=== PATIENT | female | born 1955 | race Caucasian/White ===

== ENCOUNTER 2017-11-11 01:41 | Inpatient (IN) | payer BC ==
[~2017-11-11] VITALS: Ht 149.9 cm; Wt 105.1 kg
[2017-11-11 02:24] LABS: HEMATOCRIT 44.7 % (36-48); MEAN CORPUSCULAR HEMOGLOBIN 34.4 pg (27.0-33.0); MEAN CORPUSCULAR HGB CONC 34.5 g/dL (32.0-36.0); MEAN CORPUSCULAR VOLUME 99.9 fL (79-99); NUCLEATED RED BLOOD CELLS 0.2 % (0.0-0.19); PLATELET COUNT (AUTO) 219 K/uL (130-400); RED BLOOD CELL COUNT(AUTO) 4.47 MIL/uL (4.00-5.50); RED CELL DISTRIBUTION WIDTH 14.5 % (11.0-15.5); WHITE BLOOD COUNT (AUTO) 8.9 K/uL (4.8-10.8)
[2017-11-11 02:33] LABS: CARBON DIOXIDE 27 mmol/L (21-32); CHLORIDE 106 mmol/L (101-111); CREATININE 1.4 mg/dL (0.5-1.5); GLOMERULAR FILTR. RATE CALC 40 mL/min (>60); GLUCOSE,RANDOM 86 mg/dL (70-105); SODIUM SERUM 140 mmol/L (136-145); UREA NITROGEN, BLOOD 29 mg/dL (7-18)
[2017-11-11 02:37] LABS: INR 1.12 (0.85-1.15); PARTIAL THROMBOPLASTIN TIME 28.7 SEC (26.3-35.5); PROTHROMBIN TIME 11.7 SEC (9.6-11.6)
[2017-11-11 02:43] LABS: APPEARANCE,URINE Clear (CLEAR); BILIRUBIN,URINE Negative (NEGATIVE); COLOR,URINE Dark Yellow (YELLOW); GLUCOSE, URINE (UA) Negative (NEGATIVE); KETONES,URINE Negative (NEGATIVE); LEUKOCYTE ESTERASE ,URINE Small (NEGATIVE); NITRATE,URINE Negative (NEGATIVE); OCCULT BLOOD,URINE Negative (NEGATIVE); PH,URINE 5.5 (5.0-8.0); PROTEIN,URINE Negative (NEGATIVE)
[2017-11-11 02:48] LABS: ALANINE AMINOTRANSFERASE 32 U/L (12-78); ALBUMIN 2.4 g/dL (3.5-5.0); ASPARTATE AMINOTRANSFERASE 62 U/L (10-37); BILIRUBIN,TOTAL 1.6 mg/dL (0.2-1.0); CREATINE KINASE MB < 0.5 ng/mL (0.5-3.6); CREATINE KINASE, TOTAL 54 U/L (21-232); MYOGLOBIN 48 ng/mL (10-92); TOTAL PROTEIN, SERUM 7.7 g/dL (6.0-8.3); TROPONIN I < 0.04 ng/mL (0.00-0.06)
[2017-11-11 03:05] LABS: B-TYPE NATRIURETIC PEPTIDE 220 pg/mL (0-100)
[2017-11-11] MEDS ORDERED: CEFTRIAXONE SODIUM 2 GM VIAL ONE (03:09)
[2017-11-11] MEDS ORDERED: LACTULOSE 20 GM/30 ML UDCUP ONE ×2 (03:10→09:28)
[2017-11-11] MEDS ORDERED: MAGNESIUM 2GM PREMIX 50ML 50 ML IV ONE (03:11)
[2017-11-11 03:31] LABS: BACTERIA,URINE Rare /HPF (None Seen); RBC,URINE None Seen /HPF (0-1); TRANSITIONAL EPI CELLS,URINE Few /LPF (None Seen)
[2017-11-11 03:39] LABS: BASOPHILS % (MANUAL) 1 % (0-2); EOSINOPHILS % (MANUAL) 6 % (1-6); LYMPHOCYTES % (MANUAL) 57 % (22-44); MONOCYTES % (MANUAL) 18 % (2-9); SEGMENTED NEUTROPHILS % 18 % (40-70)
[2017-11-11 03:41] LABS: MAN.DIFF COMMENT-IMPRESSION MANUAL DIFFERENTIAL
[2017-11-11] MEDS ORDERED: SODIUM CHLORIDE 0.9% 1000ML 1,000 ML IV ONE (05:25)
[2017-11-11] MEDS ORDERED: NITROGLYCERIN 0.4 MG SL TAB SL PRN (05:45)
[2017-11-11] MEDS ORDERED: MAG HYDROX/AL HYDROX/SIMETH ES 30 ML SUSP UDCUP PO PRN (05:45)
[2017-11-11] MEDS ORDERED: DiphenhydrAMINE HCL 50 MG/ML VIAL IVP PRN (05:45)
[2017-11-11] MEDS ORDERED: GUAIFENESIN-DM 200/20 MG 10 ML PO PRN (05:45)
[2017-11-11] MEDS ORDERED: ONDANSETRON HCL 4 MG/2 ML VIAL IVP PRN (05:45)
[2017-11-11] MEDS ORDERED: ZOLPIDEM TARTRATE 5 MG TAB PO PRN (05:45)
[2017-11-11] MEDS ORDERED: POTASSIUM CHLORIDE 20 MEQ ERTAB PO PRN (05:45)
[2017-11-11] MEDS ORDERED: LACTULOSE 20 GM/30 ML UDCUP PO PRN (05:45)
[2017-11-11] MEDS ORDERED: POTASSIUM CHLORIDE 20MEQ/100ML 100 ML IV PRN (05:45)
[2017-11-11] MEDS ORDERED: POTASSIUM CHLORIDE 10% ELIXIR 20 MEQ/15 ML UDCUP PO PRN (05:45)
[2017-11-11] MEDS ORDERED: DIPHENHYDRAMINE HCL 25 MG CAPSULE PO PRN (05:45)
[2017-11-11] MEDS ORDERED: CLONIDINE HCL 0.1 MG TABLET PO PRN (05:45)
[2017-11-11] MEDS ORDERED: GUAIFENESIN SUGAR-FREE 100 MG/5 ML UDCUP PO PRN (05:45)
[2017-11-11] MEDS: SODIUM CHLORIDE 0.9% 1000ML 1,000 ML IV SCH ×2 (05:45→21:11)
[2017-11-11] MEDS ORDERED: ACETAMINOPHEN 325 MG TAB PO PRN ×2 (05:45)
[2017-11-11] MEDS ORDERED: LIDOCAINE HCL-MPF 1% 2ML VIAL IJ PRN (05:45)
[2017-11-11] MEDS ORDERED: LACTULOSE 20 GM/30 ML UDCUP PO SCH (09:00)
[2017-11-11 12:51] VITALS: BP 123/78
[2017-11-11] MEDS ORDERED: ESZO3TAB38 PO (13:03)
[2017-11-11] MEDS ORDERED: CIPR-245 PO (13:03)
[2017-11-11] MEDS ORDERED: LOSA25TA21 PO (13:03)
[2017-11-11] MEDS ORDERED: LACT10SO9 PO (13:03)
[2017-11-11] MEDS ORDERED: SPIR100T PO (13:03)
[2017-11-11] MEDS ORDERED: FURO40TA5 PO (13:03)
[2017-11-11] MEDS ORDERED: PROP10TA10 PO (13:03)
[2017-11-11 16:00] VITALS: BP 111/68
[2017-11-11 19:00] VITALS: BP 126/74
[2017-11-11 23:00] VITALS: BP 115/64
[2017-11-12 03:00] VITALS: BP 119/66
== END 2017-11-12 08:15 | disposition home or self-care (01) | DRG 442 ==
LOC: EDH 01:41 → OBSVTOIN 04:45 → EDHIP 04:45 → 2CH 11:29 → 3BH 12:08
PROVIDERS: ADMIT Internal Medicine; ATTEND Internal Medicine
DX: K72.90 Hepatic failure, unspecified without coma (principal); Z68.42 Body mass index [BMI] 45.0-49.9, adult; T68.XXXA Hypothermia, initial encounter; I11.0 Hypertensive heart disease with heart failure; I50.9 Heart failure, unspecified; E83.42 Hypomagnesemia; K74.60 Unspecified cirrhosis of liver; E66.9 Obesity, unspecified; G47.00 Insomnia, unspecified; Z28.21 Immunization not carried out because of patient refusal
CPT/HCPCS: 36415; 71045; 80053; 81001; 82140; 82550; 82553; 82948; 83605; 83735; 83874; 83880; 84484; 85025; 85610; 85730; 87040; 87088; 87186; 87804; 93005; J0696; J3475; J7030

== ENCOUNTER → 2018-01-15 | Outpatient (CLI) | payer BC ==
[~2018-01-15] MED LIST: CIPR-245 PO; ESZO3TAB38 PO; FURO40TA5 PO; KETO10TA2 PO; LACT10SO9 PO; LOSA25TA21 PO; PROP10TA10 PO; SPIR100T PO; TAMS-1 PO; TRAM50TA4 PO
== END | disposition home or self-care (01) ==
LOC: RAH 13:16
PROVIDERS: ATTEND Internal Medicine
DX: K43.9 Ventral hernia without obstruction or gangrene (principal); N39.0 Urinary tract infection, site not specified; N20.0 Calculus of kidney; K57.30 Diverticulosis of large intestine without perforation or abscess without bleeding
CPT/HCPCS: 74176

== ENCOUNTER 2018-01-16 12:58 | Inpatient (IN) | payer BC ==
[~2018-01-16] VITALS: Ht 149.9 cm; Wt 121.3 kg
[~2018-01-16 12:58] MED LIST changes: -KETO10TA2 PO; -TAMS-1 PO; -TRAM50TA4 PO
[2018-01-16] MEDS ORDERED: SODIUM CHLORIDE 0.9% 500ML 500 ML IV ONE (13:11)
[2018-01-16] MEDS ORDERED: ASPIRIN 325 MG TABLET ONE (13:16)
[2018-01-16 13:26] LABS: BASOPHILS % (AUTO) 0.6 % (0.0-5.0); EOSINOPHILS % (AUTO) 1.8 % (0.0-8.0); HEMATOCRIT 41.3 % (36-48); LYMPHOCYTES % (AUTO) 37.7 % (21.0-51.0); MEAN CORPUSCULAR HEMOGLOBIN 36.9 pg (27.0-33.0); MEAN CORPUSCULAR HGB CONC 35.7 g/dL (32.0-36.0); MEAN CORPUSCULAR VOLUME 103.4 fL (79-99); NEUTROPHILS % (AUTO) 43.9 % (40.0-77.0); NUCLEATED RED BLOOD CELLS 0.1 % (0.0-0.19); PLATELET COUNT (AUTO) 233 K/uL (130-400); RED CELL DISTRIBUTION WIDTH 13.9 % (11.0-15.5); WHITE BLOOD COUNT (AUTO) 8.4 K/uL (4.8-10.8)
[2018-01-16 13:32] LABS: CREATININE 2.2 mg/dL (0.5-1.5)
[2018-01-16 13:37] LABS: INR 1.08 (0.85-1.15); PARTIAL THROMBOPLASTIN TIME 29.9 SEC (26.3-35.5); PROTHROMBIN TIME 11.3 SEC (9.6-11.6)
[2018-01-16 13:48] LABS: ALBUMIN 2.6 g/dL (3.5-5.0); BILIRUBIN,TOTAL 1.6 mg/dL (0.2-1.0); CREATINE KINASE MB 0.8 ng/mL (0.5-3.6); TOTAL PROTEIN, SERUM 7.1 g/dL (6.0-8.3)
[2018-01-16] MEDS ORDERED: KETOROLAC TROMETHAMINE 30MG/ML ONE (14:08)
[2018-01-16] MEDS ORDERED: ONDANSETRON HCL 4 MG/2 ML VIAL ONE (14:08)
[2018-01-16] MEDS ORDERED: SODIUM CHLORIDE 0.9% 1000ML 1,000 ML IV ONE (14:08)
[2018-01-16 15:15] LABS: APPEARANCE,URINE Clear (CLEAR); BILIRUBIN,URINE Negative (NEGATIVE); COLOR,URINE Yellow (YELLOW); GLUCOSE, URINE (UA) Negative (NEGATIVE); KETONES,URINE Negative (NEGATIVE); LEUKOCYTE ESTERASE ,URINE Negative (NEGATIVE); NITRATE,URINE Negative (NEGATIVE); OCCULT BLOOD,URINE Negative (NEGATIVE); PROTEIN,URINE Negative (NEGATIVE)
[2018-01-16] MEDS ORDERED: CEFTRIAXONE SODIUM 1 GM ONE (15:21)
[2018-01-16] MEDS ORDERED: DEXTROSE 5 %-0.45 % NACL 1,000 ML IV ONE (15:22)
[2018-01-16] MEDS ORDERED: ONDANSETRON HCL MDV 20ML 2 MG/ML VIAL IVP PRN (19:45)
[2018-01-16] MEDS: HYDROMORPHONE HCL 0.5 MG/0.5 ML ML IVP PRN (20:35)
[2018-01-16 20:41] VITALS: BP 90/56
[2018-01-16] MEDS ORDERED: TAMS-1 PO (21:20)
[2018-01-16] MEDS ORDERED: TRAM50TA4 PO (21:20)
[2018-01-16] MEDS ORDERED: KETO10TA2 PO (21:20)
[2018-01-16] MEDS: DEXTROSE 5 %-0.45 % NACL 1,000 ML IV SCH (21:35)
[2018-01-17] VITALS (7 sets, daily range): BP systolic 80–136; BP diastolic 20–84
[2018-01-17] MEDS: HYDROMORPHONE HCL 0.5 MG/0.5 ML ML IVP PRN (00:22)
[2018-01-17] MEDS: DEXTROSE 5 %-0.45 % NACL 1,000 ML IV SCH (02:27)
[2018-01-17 05:55] LABS: HEMATOCRIT 41.6 % (36-48); MEAN CORPUSCULAR HEMOGLOBIN 35.7 pg (27.0-33.0); MEAN CORPUSCULAR HGB CONC 33.9 g/dL (32.0-36.0); MEAN CORPUSCULAR VOLUME 105.4 fL (79-99); NUCLEATED RED BLOOD CELLS 0.1 % (0.0-0.19); PLATELET COUNT (AUTO) 215 K/uL (130-400); RED BLOOD CELL COUNT(AUTO) 3.94 MIL/uL (4.00-5.50); RED CELL DISTRIBUTION WIDTH 14.2 % (11.0-15.5); WHITE BLOOD COUNT (AUTO) 9.9 K/uL (4.8-10.8)
[2018-01-17 06:15] LABS: CREATININE 2.6 mg/dL (0.5-1.5); POTASSIUM 4.3 mmol/L (3.5-5.1)
[2018-01-17] MEDS: SODIUM CHLORIDE 0.9% 1000ML 1,000 ML IV SCH ×2 (07:30→22:50)
[2018-01-17] MEDS ORDERED: CEFTRIAXONE SODIUM 1 GM IVP SCH (15:00)
[2018-01-18] VITALS (7 sets, daily range): BP systolic 100–139; BP diastolic 50–96
[2018-01-18] MEDS: HYDROMORPHONE HCL 0.5 MG/0.5 ML ML IVP PRN ×2 (00:58→21:18)
[2018-01-18 05:18] LABS: BASOPHILS % (AUTO) 0.4 % (0.0-5.0); EOSINOPHILS % (AUTO) 2.7 % (0.0-8.0); HEMATOCRIT 38.5 % (36-48); LYMPHOCYTES % (AUTO) 30.9 % (21.0-51.0); MEAN CORPUSCULAR HEMOGLOBIN 36.7 pg (27.0-33.0); MEAN CORPUSCULAR HGB CONC 35.1 g/dL (32.0-36.0); MEAN CORPUSCULAR VOLUME 104.5 fL (79-99); PLATELET COUNT (AUTO) 219 K/uL (130-400); RED BLOOD CELL COUNT(AUTO) 3.69 MIL/uL (4.00-5.50); RED CELL DISTRIBUTION WIDTH 14.2 % (11.0-15.5)
[2018-01-18 05:40] LABS: ALBUMIN 2.4 g/dL (3.5-5.0); BILIRUBIN,TOTAL 0.8 mg/dL (0.2-1.0); CREATININE 2.6 mg/dL (0.5-1.5); POTASSIUM 5.6 mmol/L (3.5-5.1); TOTAL PROTEIN, SERUM 7.3 g/dL (6.0-8.3)
[2018-01-18] MEDS ORDERED: SODIUM POLYSTYRENE SULFONATE 15 GM/60 ML ML PO SCH (07:15)
[2018-01-18] MEDS: LACTULOSE 20 GM/30 ML UDCUP PO SCH (09:27)
[2018-01-18] MEDS: SODIUM CHLORIDE 0.9% 1000ML 1,000 ML IV SCH ×2 (09:33→23:09)
[2018-01-18] MEDS ORDERED: ACETAMINOPHEN 325 MG TAB PO PRN (14:15)
[2018-01-18] MEDS ORDERED: ACETAMINOPHEN 325 MG TAB ONE (14:29)
[2018-01-19 03:53] VITALS: BP 112/62
[2018-01-19 05:27] LABS: HEMATOCRIT 38.2 % (36-48); MEAN CORPUSCULAR HEMOGLOBIN 35.6 pg (27.0-33.0); MEAN CORPUSCULAR HGB CONC 34.1 g/dL (32.0-36.0); MEAN CORPUSCULAR VOLUME 104.2 fL (79-99); NUCLEATED RED BLOOD CELLS 0.1 % (0.0-0.19); PLATELET COUNT (AUTO) 181 K/uL (130-400); RED BLOOD CELL COUNT(AUTO) 3.66 MIL/uL (4.00-5.50); RED CELL DISTRIBUTION WIDTH 14.1 % (11.0-15.5); WHITE BLOOD COUNT (AUTO) 9.5 K/uL (4.8-10.8)
[2018-01-19 05:43] LABS: ALBUMIN 2.3 g/dL (3.5-5.0); BILIRUBIN,TOTAL 0.9 mg/dL (0.2-1.0); CREATININE 1.7 mg/dL (0.5-1.5); POTASSIUM 4.8 mmol/L (3.5-5.1); TOTAL PROTEIN, SERUM 6.7 g/dL (6.0-8.3)
[2018-01-19] MEDS ORDERED: LACTULOSE 20 GM/30 ML UDCUP PO SCH (07:00)
[2018-01-19 08:00] VITALS: BP 98/53
[2018-01-19] MEDS: LACTULOSE 20 GM/30 ML UDCUP PO SCH (10:04)
[2018-01-19 12:00] VITALS: BP 110/60
[2018-01-19 16:00] VITALS: BP 116/48
[2018-01-19 20:00] VITALS: BP 136/59
[2018-01-19] MEDS: HYDROMORPHONE HCL 0.5 MG/0.5 ML ML IVP PRN (20:52)
[2018-01-19 23:57] VITALS: BP 105/51
[2018-01-20 04:00] VITALS: BP 100/51
[2018-01-20 04:48] LABS: HEMATOCRIT 36.6 % (36-48); MEAN CORPUSCULAR HGB CONC 35.4 g/dL (32.0-36.0); MEAN CORPUSCULAR VOLUME 104.4 fL (79-99); NUCLEATED RED BLOOD CELLS 0.2 % (0.0-0.19); PLATELET COUNT (AUTO) 189 K/uL (130-400); RED BLOOD CELL COUNT(AUTO) 3.51 MIL/uL (4.00-5.50); RED CELL DISTRIBUTION WIDTH 14.2 % (11.0-15.5); WHITE BLOOD COUNT (AUTO) 10.2 K/uL (4.8-10.8)
[2018-01-20 05:03] LABS: CREATININE 1.2 mg/dL (0.5-1.5); POTASSIUM 4.7 mmol/L (3.5-5.1)
[2018-01-20 07:42] VITALS: BP 114/52
== END 2018-01-20 09:24 | disposition home or self-care (01) | DRG 683 ==
LOC: EDH 12:58 → EDHIP 14:44 → 4CH 18:51
PROVIDERS: ADMIT Internal Medicine; ATTEND Internal Medicine
DX: N19 Unspecified kidney failure (principal); I50.32 Chronic diastolic (congestive) heart failure; I27.81 Cor pulmonale (chronic); I11.0 Hypertensive heart disease with heart failure; E87.5 Hyperkalemia; I95.9 Hypotension, unspecified; E66.01 Morbid (severe) obesity due to excess calories; N39.0 Urinary tract infection, site not specified; Z68.43 Body mass index [BMI] 50.0-59.9, adult; N23 Unspecified renal colic; M19.90 Unspecified osteoarthritis, unspecified site; E78.5 Hyperlipidemia, unspecified; E86.0 Dehydration; F41.9 Anxiety disorder, unspecified; G47.30 Sleep apnea, unspecified; I35.0 Nonrheumatic aortic (valve) stenosis; K74.60 Unspecified cirrhosis of liver; R79.89 Other specified abnormal findings of blood chemistry
CPT/HCPCS: 36415; 71045; 76700; 78580; 80048; 80053; 81003; 82140; 82550; 82553; 82948; 83874; 83880; 84484; 85025; 85027; 85378; 85610; 85730; 93005; 99291; A4218; A9540; J0696; J1170; J1885; J2405; J7030; J7040; J7042

== ENCOUNTER 2018-06-14 05:55 | Emergency (ER) | payer MEDICARE ==
[~2018-06-14 05:55] MED LIST changes: -CIPR-245 PO; -ESZO3TAB38 PO; +ESZO3TAB39 PO; -LOSA25TA21 PO; -PROP10TA10 PO
[2018-06-14] MEDS ORDERED: SODIUM CHLORIDE 0.9% 1000ML 1,000 ML IV ONE (06:22)
[2018-06-14] MEDS ORDERED: KETOROLAC TROMETHAMINE 30MG/ML ONE (06:22)
[2018-06-14 06:50] LABS: APPEARANCE,URINE CLEAR (CLEAR); BILIRUBIN,URINE NEGATIVE (NEGATIVE); COLOR,URINE YELLOW (YELLOW); GLUCOSE, URINE (UA) NEGATIVE (NEGATIVE); KETONES,URINE NEGATIVE (NEGATIVE); LEUKOCYTE ESTERASE ,URINE SMALL (NEGATIVE); NITRATE,URINE NEGATIVE (NEGATIVE); OCCULT BLOOD,URINE NEGATIVE (NEGATIVE); PROTEIN,URINE NEGATIVE (NEGATIVE)
[2018-06-14 06:53] LABS: BASOPHILS % (AUTO) 1.5 % (0.0-5.0); EOSINOPHILS % (AUTO) 4.9 % (0.0-8.0); HEMATOCRIT 43.1 % (36-48); LYMPHOCYTES % (AUTO) 46.3 % (21.0-51.0); MEAN CORPUSCULAR HEMOGLOBIN 35.3 pg (27.0-33.0); MEAN CORPUSCULAR HGB CONC 33.6 g/dL (32.0-36.0); MONOCYTES % (AUTO) 20.3 % (3.0-13.0); NUCLEATED RED BLOOD CELLS 0.3 % (0.0-0.19); PLATELET COUNT (AUTO) 195 K/uL (130-400); RED BLOOD CELL COUNT(AUTO) 4.11 MIL/uL (4.00-5.50); RED CELL DISTRIBUTION WIDTH 15.8 % (11.0-15.5); WHITE BLOOD COUNT (AUTO) 7.3 K/uL (4.8-10.8)
[2018-06-14] MEDS ORDERED: ONDANSETRON HCL 4 MG/2 ML VIAL ONE (07:22)
[2018-06-14 07:32] LABS: RBC,URINE 0-1 /HPF (0-1)
[2018-06-14 07:46] LABS: BACTERIA,URINE Moderate /HPF (None Seen); SQUAMOUS EPITHELIAL CELL,UR Rare /HPF (0-2)
[2018-06-14 07:47] LABS: YEAST,URINE BUDDING Few /HPF (None Seen)
[2018-06-14 08:12] LABS: ALBUMIN 2.2 g/dL (3.5-5.0); BILIRUBIN,TOTAL 1.6 mg/dL (0.2-1.0); CREATININE 1.7 mg/dL (0.5-1.5); POTASSIUM 4.2 mmol/L (3.5-5.1); TOTAL PROTEIN, SERUM 7.2 g/dL (6.0-8.3)
== END 2018-06-14 09:05 | disposition home or self-care (01) ==
LOC: EDH 05:55
DX: M54.14 Radiculopathy, thoracic region (principal); R10.9 Unspecified abdominal pain; K74.60 Unspecified cirrhosis of liver; E72.20 Disorder of urea cycle metabolism, unspecified; N28.9 Disorder of kidney and ureter, unspecified; I50.9 Heart failure, unspecified; Z91.048 Other nonmedicinal substance allergy status
CPT/HCPCS: 36415; 74176; 80053; 81001; 82140; 85025; 96374; 96375; 99285; J1885; J2405; J7030

== ENCOUNTER → 2019-07-31 | Outpatient (CLI) | payer MEDICARE ==
[~2019-07-31] MED LIST changes: +PANT40TA25 PO; +PROP20TA7 PO; +RIFA550T PO
[2019-07-31 13:01] LABS: BASOPHILS % (AUTO) 0.8 % (0.0-5.0); EOSINOPHILS % (AUTO) 3.6 % (0.0-8.0); HEMATOCRIT 42.8 % (36-48); LYMPHOCYTES % (AUTO) 42.5 % (21.0-51.0); MEAN CORPUSCULAR HEMOGLOBIN 34.7 pg (27.0-33.0); MEAN CORPUSCULAR HGB CONC 33.7 g/dL (32.0-36.0); MEAN CORPUSCULAR VOLUME 103.2 fL (79-99); MONOCYTES % (AUTO) 20.8 % (3.0-13.0); NEUTROPHILS % (AUTO) 32.3 % (40.0-77.0); NUCLEATED RED BLOOD CELLS 0.1 % (0.0-0.19); PLATELET COUNT (AUTO) 199 K/uL (130-400); RED BLOOD CELL COUNT(AUTO) 4.15 MIL/uL (4.00-5.50); RED CELL DISTRIBUTION WIDTH 15.2 % (11.0-15.5); WHITE BLOOD COUNT (AUTO) 6.7 K/uL (4.8-10.8)
[2019-07-31 13:13] LABS: CREATININE 1.7 mg/dL (0.5-1.5); POTASSIUM 3.9 mmol/L (3.5-5.1)
[2019-07-31 13:44] LABS: INR 1.12 (0.85-1.15); PROTHROMBIN TIME 11.7 SEC (9.6-11.6)
== END | disposition home or self-care (01) ==
LOC: LAB 12:03
PROVIDERS: ATTEND Internal Medicine Gastroenterology
DX: K74.60 Unspecified cirrhosis of liver (principal)
CPT/HCPCS: 36415; 80048; 85025; 85610

== ENCOUNTER 2019-08-04 12:04 | Day surgery (SDC) | payer MEDICARE ==
[~2019-08-04] VITALS: Ht 149.9 cm; Wt 108.9 kg
[2019-08-04] VITALS (9 sets, daily range): BP systolic 130–165; BP diastolic 47–81
[~2019-08-04 12:04] MED LIST changes: -PANT40TA25 PO; -PROP20TA7 PO; -RIFA550T PO
[2019-08-04] MEDS ORDERED: PANT40TA25 PO (12:37)
[2019-08-04] MEDS ORDERED: PROP20TA7 PO (12:37)
[2019-08-04] MEDS ORDERED: RIFA550T PO (12:37)
[2019-08-04] MEDS ORDERED: SODIUM CHLORIDE 0.9% 1000ML 1,000 ML IV ONE (13:01)
[2019-08-04] MEDS ORDERED: LIDOCAINE HCL 1% 20 ML VIAL ONE (13:29)
[2019-08-04] MEDS ORDERED: PROPOFOL 10 MG/ML 20ML VIAL IV ONE (13:29)
[2019-08-04] MEDS ORDERED: ONDANSETRON HCL 4 MG/2 ML VIAL ONE (13:58)
[2019-08-04] MEDS ORDERED: LIDOCAINE HCL 2% VISCOUS 15 ML UDCUP PO SCH (14:45)
== END 2019-08-04 14:30 | disposition home or self-care (01) ==
LOC: DAH 12:04
PROVIDERS: ATTEND Internal Medicine Gastroenterology
DX: K74.60 Unspecified cirrhosis of liver (principal); K29.50 Unspecified chronic gastritis without bleeding; K21.0 Gastro-esophageal reflux disease with esophagitis; I85.00 Esophageal varices without bleeding; K29.00 Acute gastritis without bleeding; K76.6 Portal hypertension; I10 Essential (primary) hypertension; E66.01 Morbid (severe) obesity due to excess calories; Z98.890 Other specified postprocedural states; Z80.3 Family history of malignant neoplasm of breast; Z80.8 Family history of malignant neoplasm of other organs or systems; Z82.49 Family history of ischemic heart disease and other diseases of the circulatory system; Z88.0 Allergy status to penicillin; Z88.1 Allergy status to other antibiotic agents
CPT/HCPCS: 43239; 43244; 88305; A4215; A4221; A4222; A4223; A4606; A4663; J2405; J2704; J7030

== ENCOUNTER 2019-09-02 11:08 | Day surgery (SDC) | payer MEDICARE ==
[~2019-09-02] VITALS: Ht 149.9 cm; Wt 108.9 kg
[~2019-09-02 11:08] MED LIST changes: +PROP20TA7 PO; +RIFA550T PO
[2019-09-02 12:35] VITALS: BP 123/57
[2019-09-02] MEDS ORDERED: OMEP20TA25 PO (12:39)
[2019-09-02] MEDS ORDERED: SODIUM CHLORIDE 0.9% 1000ML 1,000 ML IV ONE (13:09)
[2019-09-02] MEDS ORDERED: PROPOFOL 10 MG/ML 20ML VIAL IV ONE ×2 (14:06→14:13)
[2019-09-02] MEDS ORDERED: SUCCINYLCHOLINE 200MG/10ML SYR ONE (14:07)
[2019-09-02 14:35] VITALS: BP 139/69
[2019-09-02 14:40] VITALS: BP 148/81
[2019-09-02 14:45] VITALS: BP 150/63
[2019-09-02 14:50] VITALS: BP 153/82
[2019-09-02 14:55] VITALS: BP 155/79
== END 2019-09-02 14:25 | disposition home or self-care (01) ==
LOC: DAH 11:08
PROVIDERS: ATTEND Internal Medicine Gastroenterology
DX: I85.00 Esophageal varices without bleeding (principal); K29.00 Acute gastritis without bleeding; K76.6 Portal hypertension; K31.89 Other diseases of stomach and duodenum; I10 Essential (primary) hypertension; Z88.0 Allergy status to penicillin; Z88.1 Allergy status to other antibiotic agents; Z91.041 Radiographic dye allergy status; Z79.899 Other long term (current) drug therapy; Z90.710 Acquired absence of both cervix and uterus; Z85.3 Personal history of malignant neoplasm of breast; Z85.828 Personal history of other malignant neoplasm of skin; Z98.890 Other specified postprocedural states; Z82.49 Family history of ischemic heart disease and other diseases of the circulatory system; Z83.3 Family history of diabetes mellitus
CPT/HCPCS: 43235; A4620; J0330; J2704 ×2; J7030

== ENCOUNTER 2020-05-06 22:55 | Emergency (ER) | payer MEDICARE ==
[~2020-05-06 22:55] MED LIST changes: -ESZO3TAB39 PO; +OMEP20TA25 PO
[2020-05-06 23:46] LABS: EOSINOPHILS % (AUTO) 5.7 % (0.0-8.0); HEMATOCRIT 39.5 % (36-48); LYMPHOCYTES % (AUTO) 48.3 % (21.0-51.0); MEAN CORPUSCULAR HEMOGLOBIN 34.4 pg (27.0-33.0); MEAN CORPUSCULAR HGB CONC 35.4 g/dL (32.0-36.0); MEAN CORPUSCULAR VOLUME 97.1 fL (79-99); MONOCYTES % (AUTO) 19.8 % (3.0-13.0); NEUTROPHILS % (AUTO) 25.1 % (40.0-77.0); PLATELET COUNT (AUTO) 179 K/uL (130-400); RED BLOOD CELL COUNT(AUTO) 4.07 MIL/uL (4.00-5.50); RED CELL DISTRIBUTION WIDTH 16.3 % (11.0-15.5); WHITE BLOOD COUNT (AUTO) 7.8 K/uL (4.8-10.8)
[2020-05-07] LABS: CREATININE 1.9 mg/dL (0.5-1.5); POTASSIUM 5.1 mmol/L (3.5-5.1)
[2020-05-07 00:02] LABS: INR 1.06 (0.85-1.15); PARTIAL THROMBOPLASTIN TIME 27.6 SEC (26.3-35.5); PROTHROMBIN TIME 11.4 SEC (9.6-11.6)
[2020-05-07 00:04] LABS: ALBUMIN 2.9 g/dL (3.5-5.0); BILIRUBIN,TOTAL 1.5 mg/dL (0.2-1.0); TOTAL PROTEIN, SERUM 8.1 g/dL (6.0-8.3)
[2020-05-07] MEDS ORDERED: ONDANSETRON HCL 4 MG/2 ML VIAL ONE (00:14)
[2020-05-07] MEDS ORDERED: METOCLOPRAMIDE 10 MG/2 ML VIAL ONE (00:14)
[2020-05-07] MEDS ORDERED: KETOROLAC TROMETHAMINE 15MG/ML ONE (00:14)
[2020-05-07 03:02] LABS: APPEARANCE,URINE Clear (CLEAR); BILIRUBIN,URINE Negative (NEGATIVE); COLOR,URINE Yellow (YELLOW); GLUCOSE, URINE (UA) Negative (NEGATIVE); KETONES,URINE Negative (NEGATIVE); LEUKOCYTE ESTERASE ,URINE Small (NEGATIVE); NITRATE,URINE Negative (NEGATIVE); OCCULT BLOOD,URINE Negative (NEGATIVE); PH,URINE 5.5 (5.0-8.0); PROTEIN,URINE Negative (NEGATIVE); UROBILINOGEN,URINE 0.2 mg/dL (0.2-1.0)
[2020-05-07] MEDS ORDERED: LEVOFLOXACIN 500 MG/D5W 100 ML 100 ML ONE (03:11)
[2020-05-07] MEDS ORDERED: METRONIDAZOLE 500MG/100ML BAG 100 ML ONE (03:12)
[2020-05-07 03:25] LABS: BACTERIA,URINE Moderate /HPF (None Seen)
[2020-05-07 03:26] LABS: RENAL EPITHELIAL CELLS,URINE Few /HPF (None Seen)
== END 2020-05-07 04:29 | disposition home or self-care (01) ==
LOC: EDH 22:55
DX: K57.32 Diverticulitis of large intestine without perforation or abscess without bleeding (principal); R10.9 Unspecified abdominal pain; E86.0 Dehydration; Z91.048 Other nonmedicinal substance allergy status
CPT/HCPCS: 36415; 74176; 80053; 81001; 82550; 83690; 84484; 85025; 85610; 85730; 87077; 87088; 87186; 93005; 96361; 96365; 96367; 96375; 99285; J1885; J1956; J2405; J2765; J3490

== ENCOUNTER → 2021-03-30 | Outpatient (CLI) | payer MEDICARE | END | disposition home or self-care (01) | LOC: SHCH 15:12 | PROVIDERS: ATTEND Internal Medicine Cardiovascular Disease | DX: I08.1 Rheumatic disorders of both mitral and tricuspid valves (principal) | CPT/HCPCS: 93306; 93356 ==

== ENCOUNTER → 2021-04-24 | Outpatient (CLI) | payer MEDICARE ==
[~2021-04-24] VITALS: Ht 149.9 cm; Wt 101.2 kg
[~2021-04-24] MED LIST changes: -FURO40TA5 PO; -LACT10SO9 PO; -OMEP20TA25 PO; -PROP20TA7 PO; +REGADENOSON 0.4 MG/5 ML PF SYG IVP SCH; -RIFA550T PO; -SPIR100T PO
== END | disposition home or self-care (01) ==
LOC: SHCH 07:44
PROVIDERS: ATTEND Internal Medicine Cardiovascular Disease
DX: I05.9 Rheumatic mitral valve disease, unspecified (principal); R06.09 Other forms of dyspnea; R11.0 Nausea
CPT/HCPCS: 78452; 93017; 96374; A9500 ×2; J2785

== ENCOUNTER 2021-05-29 09:05 | Observation (INO) | payer MEDICARE ==
[~2021-05-29] VITALS: Ht 160 cm; Wt 93.0 kg
[2021-05-29 09:07] VITALS: BP 125/65
[2021-05-29] MEDS ORDERED: PROP10TA10 PO (09:30)
[2021-05-29] MEDS ORDERED: VITAMIN D12 (09:30)
[2021-05-29] MEDS ORDERED: FURO40TA5 PO (09:30)
[2021-05-29] MEDS ORDERED: OMEP40CA21 PO (09:30)
[2021-05-29] MEDS ORDERED: LACT10SO62 PO (09:30)
[2021-05-29 09:34] LABS: BASOPHILS % (AUTO) 0.8 % (0.0-5.0); EOSINOPHILS % (AUTO) 3.9 % (0.0-8.0); HEMATOCRIT 39.1 % (36-48); LYMPHOCYTES % (AUTO) 45.4 % (21.0-51.0); MEAN CORPUSCULAR HEMOGLOBIN 33.6 pg (27.0-33.0); MEAN CORPUSCULAR VOLUME 95.8 fL (79-99); MONOCYTES % (AUTO) 16.6 % (3.0-13.0); NEUTROPHILS % (AUTO) 33.2 % (40.0-77.0); PLATELET COUNT (AUTO) 213 K/uL (130-400); RED BLOOD CELL COUNT(AUTO) 4.08 MIL/uL (4.00-5.50); RED CELL DISTRIBUTION WIDTH 19.7 % (11.0-15.5); WHITE BLOOD COUNT (AUTO) 7.9 K/uL (4.8-10.8)
[2021-05-29 09:41] LABS: CREATININE 1.3 mg/dL (0.5-1.5); POTASSIUM 5.3 mmol/L (3.5-5.1)
[2021-05-29 09:48] LABS: ALBUMIN 2.3 g/dL (3.5-5.0); TOTAL PROTEIN, SERUM 8.1 g/dL (6.0-8.3)
[2021-05-29 09:52] LABS: APPEARANCE,URINE Clear (CLEAR); BILIRUBIN,URINE Small (NEGATIVE); COLOR,URINE Dark Yellow (YELLOW); GLUCOSE, URINE (UA) Negative (NEGATIVE); KETONES,URINE Trace mg/dL (NEGATIVE); LEUKOCYTE ESTERASE ,URINE Moderate (NEGATIVE); NITRATE,URINE Positive (NEGATIVE); OCCULT BLOOD,URINE Negative (NEGATIVE); PROTEIN,URINE Trace mg/dL (NEGATIVE)
[2021-05-29] MEDS ORDERED: 0.9%NACL 1000ML 1,000 ML IV ONE (09:59)
[2021-05-29] MEDS ORDERED: 0.9%NACL 1000ML 1,000 ML IV SCH (10:00)
[2021-05-29 10:12] LABS: RBC,URINE 0-1 /HPF (0-1)
[2021-05-29 10:13] LABS: BACTERIA,URINE Few /HPF (None Seen); MUCUS,URINE Rare LPF (None Seen); SQUAMOUS EPITHELIAL CELL,UR Few /HPF (0-2)
[2021-05-29 11:36] VITALS: BP 130/70
[2021-05-29] MEDS ORDERED: LACTULOSE 20 GM/30 ML UDCUP PO SCH ×2 (12:00→14:00)
[2021-05-29] MEDS ORDERED: CEFTRIAXONE 1G VIAL IVP SCH (12:00)
[2021-05-29] MEDS ORDERED: 1/2 NS 1000ML 1,000 ML IV SCH (12:30)
[2021-05-29] MEDS: CEFTRIAXONE 1G VIAL IVP SCH (13:31)
[2021-05-29] MEDS ORDERED: ERGOCALCIFEROL (VITAMIN D2) 50,000 UNIT CAPSULE PO SCH (14:59)
[2021-05-29] MEDS: FUROSEMIDE 40 MG TABLET PO SCH (16:04)
[2021-05-29] MEDS: PANTOPRAZOLE 40 MG TAB DR PO SCH (16:04)
[2021-05-29 16:06] VITALS: BP 130/66
[2021-05-29 19:32] VITALS: BP 138/85
[2021-05-29] MEDS: LACTULOSE 20 GM/30 ML UDCUP PO SCH (20:38)
[2021-05-30] MEDS ORDERED: ONDANSETRON 4MG INJ ONE (01:47)
[2021-05-30] MEDS ORDERED: ONDANSETRON 4MG INJ IVP PRN (02:00)
[2021-05-30] MEDS ORDERED: IBUPROFEN 400 MG TABLET ONE (02:12)
[2021-05-30] MEDS ORDERED: IBUPROFEN 400 MG TABLET PO PRN (02:30)
[2021-05-30 04:56] VITALS: BP 111/68
[2021-05-30] MEDS: PANTOPRAZOLE 40 MG TAB DR PO SCH (07:36)
[2021-05-30 07:45] LABS: BASOPHILS % (AUTO) 0.9 % (0.0-5.0); EOSINOPHILS % (AUTO) 4.4 % (0.0-8.0); HEMATOCRIT 33.9 % (36-48); LYMPHOCYTES % (AUTO) 45.3 % (21.0-51.0); MEAN CORPUSCULAR HEMOGLOBIN 33.3 pg (27.0-33.0); MEAN CORPUSCULAR HGB CONC 34.5 g/dL (32.0-36.0); MEAN CORPUSCULAR VOLUME 96.6 fL (79-99); MONOCYTES % (AUTO) 20.9 % (3.0-13.0); NEUTROPHILS % (AUTO) 28.3 % (40.0-77.0); PLATELET COUNT (AUTO) 182 K/uL (130-400); RED BLOOD CELL COUNT(AUTO) 3.51 MIL/uL (4.00-5.50); RED CELL DISTRIBUTION WIDTH 19.8 % (11.0-15.5); WHITE BLOOD COUNT (AUTO) 8.2 K/uL (4.8-10.8)
[2021-05-30 08:00] VITALS: BP 134/64
[2021-05-30 08:12] LABS: BILIRUBIN,TOTAL 1.2 mg/dL (0.2-1.0); CREATININE 1.5 mg/dL (0.5-1.5); POTASSIUM 4.1 mmol/L (3.5-5.1); TOTAL PROTEIN, SERUM 6.7 g/dL (6.0-8.3)
[2021-05-30] MEDS: FUROSEMIDE 40 MG TABLET PO SCH (08:32)
[2021-05-30] MEDS: LACTULOSE 20 GM/30 ML UDCUP PO SCH (08:32)
[2021-05-30] MEDS ORDERED: 0.9%NACL 50ML 50 ML IV ONE (10:00)
[2021-05-30] MEDS: CEFTRIAXONE 1G VIAL IVP SCH (10:01)
[2021-05-30 11:14] VITALS: BP 127/45
== END 2021-05-30 13:20 | disposition home or self-care (01) ==
LOC: EDH 09:05 → EDHIP 11:51
PROVIDERS: ADMIT Internal Medicine; ATTEND Internal Medicine
DX: K72.90 Hepatic failure, unspecified without coma (principal); Z20.822 Contact with and (suspected) exposure to COVID-19; R41.82 Altered mental status, unspecified; N39.0 Urinary tract infection, site not specified; I10 Essential (primary) hypertension; K21.9 Gastro-esophageal reflux disease without esophagitis; K76.9 Liver disease, unspecified; K74.60 Unspecified cirrhosis of liver; E66.01 Morbid (severe) obesity due to excess calories; Z90.49 Acquired absence of other specified parts of digestive tract; Z68.36 Body mass index [BMI] 36.0-36.9, adult
CPT/HCPCS: 36415; 70450; 71045; 80053; 81001; 82140; 83605; 84484; 85025; 87040; 87077; 87088; 87186; 87635; 93005; 96361; 96374; 96376; C9803; G0378; J0696; J2405; J7030

== ENCOUNTER 2021-08-29 04:33 | Observation (INO) | payer MEDICARE ==
[~2021-08-29] VITALS: Ht 149.9 cm; Wt 101.2 kg
[~2021-08-29 04:33] MED LIST changes: +FURO40TA5 PO; +LACT10SO62 PO; +OMEP40CA21 PO; +PROP10TA10 PO; -REGADENOSON 0.4 MG/5 ML PF SYG IVP SCH; +VITAMIN D12
[2021-08-29] MEDS ORDERED: 0.9%NACL 1000ML 1,000 ML IV ONE (05:00)
[2021-08-29] MEDS ORDERED: ONDANSETRON 4MG INJ IVP ONE (05:00)
[2021-08-29 05:23] LABS: BASOPHILS % (AUTO) 0.7 % (0.0-5.0); EOSINOPHILS % (AUTO) 4.9 % (0.0-8.0); HEMATOCRIT 36.1 % (36-48); LYMPHOCYTES % (AUTO) 44.9 % (21.0-51.0); MEAN CORPUSCULAR HEMOGLOBIN 33.2 pg (27.0-33.0); MEAN CORPUSCULAR HGB CONC 34.6 g/dL (32.0-36.0); MONOCYTES % (AUTO) 19.3 % (3.0-13.0); NEUTROPHILS % (AUTO) 30.1 % (40.0-77.0); PLATELET COUNT (AUTO) 168 K/uL (130-400); RED BLOOD CELL COUNT(AUTO) 3.76 MIL/uL (4.00-5.50); RED CELL DISTRIBUTION WIDTH 17.3 % (11.0-15.5); WHITE BLOOD COUNT (AUTO) 6.9 K/uL (4.8-10.8)
[2021-08-29 05:39] LABS: CREATININE 2.4 mg/dL (0.5-1.5); POTASSIUM 4.5 mmol/L (3.5-5.1)
[2021-08-29 05:44] LABS: ALBUMIN 2.4 g/dL (3.5-5.0); BILIRUBIN,TOTAL 0.9 mg/dL (0.2-1.0); MAGNESIUM 1.8 mg/dL (1.80-2.40); TOTAL PROTEIN, SERUM 7.1 g/dL (6.0-8.3)
[2021-08-29 06:12] LABS: APPEARANCE,URINE Cloudy (CLEAR); BILIRUBIN,URINE Negative (NEGATIVE); COLOR,URINE Yellow (YELLOW); GLUCOSE, URINE (UA) Negative (NEGATIVE); KETONES,URINE Negative (NEGATIVE); LEUKOCYTE ESTERASE ,URINE Negative (NEGATIVE); NITRATE,URINE Negative (NEGATIVE); OCCULT BLOOD,URINE Negative (NEGATIVE); PH,URINE 5.5 (5.0-8.0); PROTEIN,URINE Negative (NEGATIVE)
[2021-08-29 06:28] LABS: BACTERIA,URINE Rare /HPF (None Seen); RBC,URINE 0-1 /HPF (0-1); WBC,URINE 0-1 /HPF (0-1)
[2021-08-29 06:29] LABS: SQUAMOUS EPITHELIAL CELL,UR 0-2 /HPF (0-2)
[2021-08-29] MEDS ORDERED: LACTULOSE 20 GM/30 ML UDCUP PR SCH (06:30)
[2021-08-29] MEDS ORDERED: LACT10SO62 PO (20:31)
[2021-08-29] MEDS: CEFTRIAXONE 1G VIAL IVP SCH (21:12)
[2021-08-29] MEDS: LACTULOSE 20 GM/30 ML UDCUP PO SCH (21:12)
[2021-08-30 05:14] LABS: BASOPHILS % (AUTO) 0.9 % (0.0-5.0); EOSINOPHILS % (AUTO) 4.7 % (0.0-8.0); HEMATOCRIT 34.1 % (36-48); LYMPHOCYTES % (AUTO) 51.8 % (21.0-51.0); MEAN CORPUSCULAR HEMOGLOBIN 33.4 pg (27.0-33.0); MEAN CORPUSCULAR HGB CONC 34.9 g/dL (32.0-36.0); MEAN CORPUSCULAR VOLUME 95.8 fL (79-99); MONOCYTES % (AUTO) 15.9 % (3.0-13.0); NEUTROPHILS % (AUTO) 26.5 % (40.0-77.0); PLATELET COUNT (AUTO) 182 K/uL (130-400); RED BLOOD CELL COUNT(AUTO) 3.56 MIL/uL (4.00-5.50); RED CELL DISTRIBUTION WIDTH 17.6 % (11.0-15.5); WHITE BLOOD COUNT (AUTO) 6.6 K/uL (4.8-10.8)
[2021-08-30 05:33] LABS: ALBUMIN 2.2 g/dL (3.5-5.0); POTASSIUM 4.9 mmol/L (3.5-5.1); TOTAL PROTEIN, SERUM 6.8 g/dL (6.0-8.3)
[2021-08-30] MEDS: LACTULOSE 20 GM/30 ML UDCUP PO SCH ×3 (08:48→20:42)
[2021-08-30 09:46] VITALS: BP 121/69
[2021-08-30 12:00] VITALS: BP 102/46
[2021-08-30 16:00] VITALS: BP 113/67
[2021-08-30 20:00] VITALS: BP 110/52
[2021-08-30] MEDS: CEFTRIAXONE 1G VIAL IVP SCH (20:42)
[2021-08-31] VITALS: BP 110/52
[2021-08-31 03:41] LABS: HEMATOCRIT 30.7 % (36-48); MEAN CORPUSCULAR HEMOGLOBIN 33.4 pg (27.0-33.0); MEAN CORPUSCULAR HGB CONC 33.9 g/dL (32.0-36.0); MEAN CORPUSCULAR VOLUME 98.7 fL (79-99); PLATELET COUNT (AUTO) 147 K/uL (130-400); RED BLOOD CELL COUNT(AUTO) 3.11 MIL/uL (4.00-5.50); RED CELL DISTRIBUTION WIDTH 18.5 % (11.0-15.5); WHITE BLOOD COUNT (AUTO) 7.9 K/uL (4.8-10.8)
[2021-08-31 03:52] LABS: BILIRUBIN,TOTAL 0.9 mg/dL (0.2-1.0); CREATININE 1.6 mg/dL (0.5-1.5); POTASSIUM 4.7 mmol/L (3.5-5.1); TOTAL PROTEIN, SERUM 5.9 g/dL (6.0-8.3)
[2021-08-31 04:00] VITALS: BP 95/47
[2021-08-31 08:10] VITALS: BP 108/42
[2021-08-31] MEDS: LACTULOSE 20 GM/30 ML UDCUP PO SCH (08:52)
[2021-08-31 12:00] VITALS: BP 132/49
[2021-08-31 16:00] VITALS: BP 120/72
== END 2021-08-31 18:10 | disposition home or self-care (01) ==
LOC: EDH 04:33 → EDHIP 06:17 → 3DH 08-30 09:41
PROVIDERS: ADMIT Internal Medicine; ATTEND Internal Medicine
DX: K72.90 Hepatic failure, unspecified without coma (principal); I10 Essential (primary) hypertension; J45.909 Unspecified asthma, uncomplicated; E66.01 Morbid (severe) obesity due to excess calories; N39.0 Urinary tract infection, site not specified; K74.60 Unspecified cirrhosis of liver; E11.9 Type 2 diabetes mellitus without complications; E78.00 Pure hypercholesterolemia, unspecified; M15.9 Polyosteoarthritis, unspecified; R41.82 Altered mental status, unspecified; F80.9 Developmental disorder of speech and language, unspecified; Z87.440 Personal history of urinary (tract) infections; Z79.899 Other long term (current) drug therapy; Z98.890 Other specified postprocedural states; Z68.42 Body mass index [BMI] 45.0-49.9, adult
CPT/HCPCS: 36415 ×3; 80053 ×3; 81001; 82140 ×2; 83605; 83735; 85025 ×2; 85027; 87088; 96361; 96374; 96375; 96376; 99291; G0378 ×60; J0696 ×2; J2405

== ENCOUNTER 2022-02-07 14:00 | Inpatient (IN) | payer MEDICARE ==
[~2022-02-07] VITALS: Ht 149.9 cm; Wt 102.6 kg
[~2022-02-07 14:00] MED LIST changes: +MELA5CAP PO; +MULT-1258 PO; +NIAC500T22 PO; +SPIR100T5 PO
[2022-02-07 14:39] LABS: BASOPHILS % (AUTO) 0.5 % (0.0-5.0); EOSINOPHILS % (AUTO) 1.5 % (0.0-8.0); HEMATOCRIT 36.3 % (36-48); LYMPHOCYTES % (AUTO) 21.2 % (21.0-51.0); MEAN CORPUSCULAR HEMOGLOBIN 33.6 pg (27.0-33.0); MEAN CORPUSCULAR HGB CONC 35.3 g/dL (32.0-36.0); MEAN CORPUSCULAR VOLUME 95.3 fL (79-99); MONOCYTES % (AUTO) 10.9 % (3.0-13.0); NEUTROPHILS % (AUTO) 65.4 % (40.0-77.0); PLATELET COUNT (AUTO) 197 K/uL (130-400); RED BLOOD CELL COUNT(AUTO) 3.81 MIL/uL (4.00-5.50); RED CELL DISTRIBUTION WIDTH 18.8 % (11.0-15.5); WHITE BLOOD COUNT (AUTO) 19.2 K/uL (4.8-10.8)
[2022-02-07 15:07] LABS: CREATININE 1.8 mg/dL (0.5-1.5); POTASSIUM 4.5 mmol/L (3.5-5.1)
[2022-02-07 15:08] LABS: ALBUMIN 2.4 g/dL (3.5-5.0); TOTAL PROTEIN, SERUM 7.1 g/dL (6.0-8.3)
[2022-02-07] MEDS ORDERED: LACTULOSE 20 GM/30 ML UDCUP PR SCH (15:30)
[2022-02-07] MEDS ORDERED: 0.9%NACL 1000ML 1,000 ML IV ONE (17:00)
[2022-02-07] MEDS: ZOSYN 3.375GM +NS 50ML IV SCH (17:06)
[2022-02-07 17:45] LABS: APPEARANCE,URINE Cloudy (CLEAR); BILIRUBIN,URINE Negative (NEGATIVE); COLOR,URINE Yellow (YELLOW); GLUCOSE, URINE (UA) Negative (NEGATIVE); KETONES,URINE Negative (NEGATIVE); LEUKOCYTE ESTERASE ,URINE Large (NEGATIVE); NITRATE,URINE Negative (NEGATIVE); OCCULT BLOOD,URINE Moderate (NEGATIVE); PH,URINE 6.5 (5.0-8.0); PROTEIN,URINE Negative (NEGATIVE)
[2022-02-07 18:17] LABS: BACTERIA,URINE Many /HPF (None Seen)
[2022-02-07 18:18] LABS: RBC,URINE 0-1 /HPF (0-1); SQUAMOUS EPITHELIAL CELL,UR None Seen /HPF (0-2)
[2022-02-07] MEDS ORDERED: CEFTRIAXONE 1G VIAL IVP SCH (23:00)
[2022-02-07 23:20] VITALS: BP 128/55
[2022-02-07] MEDS: LACTULOSE 20 GM/30 ML UDCUP PO SCH (23:35)
[2022-02-08] MEDS: ZOSYN 3.375GM +NS 50ML IV SCH ×2 (00:05→08:55)
[2022-02-08 04:38] VITALS: BP 157/55
[2022-02-08 05:47] LABS: BASOPHILS % (AUTO) 0.5 % (0.0-5.0); EOSINOPHILS % (AUTO) 3.6 % (0.0-8.0); HEMATOCRIT 32.9 % (36-48); LYMPHOCYTES % (AUTO) 29.1 % (21.0-51.0); MEAN CORPUSCULAR HEMOGLOBIN 33.1 pg (27.0-33.0); MEAN CORPUSCULAR VOLUME 94.8 fL (79-99); MONOCYTES % (AUTO) 13.2 % (3.0-13.0); NEUTROPHILS % (AUTO) 53.4 % (40.0-77.0); PLATELET COUNT (AUTO) 179 K/uL (130-400); RED BLOOD CELL COUNT(AUTO) 3.47 MIL/uL (4.00-5.50); RED CELL DISTRIBUTION WIDTH 18.7 % (11.0-15.5)
[2022-02-08 06:03] LABS: ALBUMIN 1.9 g/dL (3.5-5.0); BILIRUBIN,TOTAL 1.9 mg/dL (0.2-1.0); CREATININE 2.1 mg/dL (0.5-1.5); POTASSIUM 4.2 mmol/L (3.5-5.1); TOTAL PROTEIN, SERUM 5.9 g/dL (6.0-8.3)
[2022-02-08 08:00] VITALS: BP 115/74
[2022-02-08] MEDS: LACTULOSE 20 GM/30 ML UDCUP PO SCH (08:55)
== END 2022-02-08 11:50 | disposition home or self-care (01) | DRG 433 ==
LOC: EDH 14:00 → EDHIP 15:43 → 3DH 22:29
PROVIDERS: ADMIT Internal Medicine; ATTEND Internal Medicine
DX: K74.60 Unspecified cirrhosis of liver (principal); N39.0 Urinary tract infection, site not specified; E66.2 Morbid (severe) obesity with alveolar hypoventilation; I50.32 Chronic diastolic (congestive) heart failure; Z68.42 Body mass index [BMI] 45.0-49.9, adult; K72.90 Hepatic failure, unspecified without coma; Z88.8 Allergy status to other drugs, medicaments and biological substances; Z87.440 Personal history of urinary (tract) infections; M19.90 Unspecified osteoarthritis, unspecified site; E11.9 Type 2 diabetes mellitus without complications; J45.909 Unspecified asthma, uncomplicated
CPT/HCPCS: 36415; 80053; 81001; 82140; 84484; 85025; 87077; 87088; 87186; 93005; 99291; G0378; J0696; J2543; J7030

== ENCOUNTER 2022-11-15 18:05 | Observation (INO) | payer MEDICARE ==
[~2022-11-15] VITALS: Ht 162.6 cm; Wt 90.7 kg
[~2022-11-15 18:05] MED LIST changes: -LACT10SO62 PO; +LACT10SO95 PO
[2022-11-15 19:17] LABS: BASOPHILS % (AUTO) 0.7 % (0.0-5.0); EOSINOPHILS % (AUTO) 3.9 % (0.0-8.0); LYMPHOCYTES % (AUTO) 39.7 % (21.0-51.0); MEAN CORPUSCULAR HEMOGLOBIN 33.6 pg (27.0-33.0); MEAN CORPUSCULAR HGB CONC 34.8 g/dL (32.0-36.0); MEAN CORPUSCULAR VOLUME 96.5 fL (79-99); MONOCYTES % (AUTO) 21.5 % (3.0-13.0); NEUTROPHILS % (AUTO) 33.8 % (40.0-77.0); PLATELET COUNT (AUTO) 215 K/uL (130-400); RED BLOOD CELL COUNT(AUTO) 2.59 MIL/uL (4.00-5.50); RED CELL DISTRIBUTION WIDTH 19.6 % (11.0-15.5); WHITE BLOOD COUNT (AUTO) 10.4 K/uL (4.8-10.8)
[2022-11-15 19:29] LABS: INR 1.02 (0.85-1.15); PROTHROMBIN TIME 11.1 SEC (9.6-11.6)
[2022-11-15 19:31] LABS: CREATININE 1.7 mg/dL (0.5-1.5); POTASSIUM 4.2 mmol/L (3.5-5.1)
[2022-11-15 19:36] LABS: ALBUMIN 2.1 g/dL (3.5-5.0); TOTAL PROTEIN, SERUM 6.3 g/dL (6.0-8.3)
[2022-11-16] MEDS ORDERED: DEXTROSE 5 %-0.45 % NACL 1,000 ML IV SCH
[2022-11-16 01:18] LABS: HEMATOCRIT 23.2 % (36-48)
[2022-11-16 04:20] VITALS: BP 93/39
[2022-11-16 07:05] LABS: HEMATOCRIT 23.1 % (36-48)
[2022-11-16 08:17] VITALS: BP 149/75
[2022-11-16] MEDS ORDERED: PANTOPRAZOLE 40 MG/VIAL IVP SCH (09:00)
[2022-11-16] MEDS ORDERED: IRON SUCROSE COMPLEX 300 MG in 0.9% NACL 250ML 250 ML IV SCH (09:00)
[2022-11-16 11:27] VITALS: BP 144/43
[2022-11-16 12:50] LABS: HEMATOCRIT 24.8 % (36-48)
== END 2022-11-16 14:00 | disposition home or self-care (01) ==
LOC: EDH 18:05 → EDHIP 22:44 → 4DH 11-16 04:51
PROVIDERS: ADMIT Internal Medicine; ATTEND Internal Medicine
DX: K92.2 Gastrointestinal hemorrhage, unspecified (principal); D62 Acute posthemorrhagic anemia; K74.60 Unspecified cirrhosis of liver; N28.9 Disorder of kidney and ureter, unspecified; S02.5XXD Fracture of tooth (traumatic), subsequent encounter for fracture with routine healing; Z79.899 Other long term (current) drug therapy; X58.XXXD Exposure to other specified factors, subsequent encounter
CPT/HCPCS: 99284; 80053; 82140; 85025; 85610; 85730; 86850; 86900; 86901; 86923; 82270; 36415 ×2; 96374; 96361; 96375; 85014 ×3; 85018 ×3; G0378 ×15; J7042; J1756; C9113; J7050

== ENCOUNTER 2022-12-26 11:51 | Inpatient (IN) | payer MEDICARE ==
[~2022-12-26] VITALS: Ht 149.9 cm; Wt 100.5 kg
[~2022-12-26 11:51] MED LIST changes: -MELA5CAP PO; -MULT-1258 PO; -NIAC500T22 PO; -PROP10TA10 PO
[2022-12-26] MEDS ORDERED: NITROGLYCERIN 0.4 MG SL TAB SL ONE (11:55)
[2022-12-26 12:19] LABS: BASOPHILS % (AUTO) 0.9 % (0.0-5.0); EOSINOPHILS % (AUTO) 7.5 % (0.0-8.0); HEMATOCRIT 33.4 % (36-48); LYMPHOCYTES % (AUTO) 53.1 % (21.0-51.0); MEAN CORPUSCULAR HEMOGLOBIN 32.7 pg (27.0-33.0); MEAN CORPUSCULAR HGB CONC 32.9 g/dL (32.0-36.0); MEAN CORPUSCULAR VOLUME 99.4 fL (79-99); NEUTROPHILS % (AUTO) 21.3 % (40.0-77.0); PLATELET COUNT (AUTO) 250 K/uL (130-400); RED BLOOD CELL COUNT(AUTO) 3.36 MIL/uL (4.00-5.50); RED CELL DISTRIBUTION WIDTH 16.1 % (11.0-15.5); WHITE BLOOD COUNT (AUTO) 8.7 K/uL (4.8-10.8)
[2022-12-26 12:55] LABS: CREATININE 1.8 mg/dL (0.5-1.5); POTASSIUM 4.9 mmol/L (3.5-5.1)
[2022-12-26 13:00] LABS: ALBUMIN 2.2 g/dL (3.5-5.0); TOTAL PROTEIN, SERUM 6.7 g/dL (6.0-8.3)
[2022-12-26 17:04] LABS: CREATINE KINASE, TOTAL 26 U/L (21-232); MYOGLOBIN 49 ng/mL (10-92)
[2022-12-26 18:55] VITALS: BP 127/69
[2022-12-26] MEDS: HYDROMORPHONE 0.5 MG SYG (0.5MG/0.5ML) IVP PRN (21:19)
[2022-12-26] MEDS: ONDANSETRON 4MG INJ IVP PRN (23:43)
[2022-12-27] VITALS: BP 139/62
[2022-12-27 04:00] VITALS: BP 152/77
[2022-12-27 08:00] VITALS: BP 117/42
[2022-12-27] MEDS: LACTULOSE 20 GM/30 ML UDCUP PO SCH (08:51)
[2022-12-27] MEDS: ONDANSETRON 4MG INJ IVP PRN ×3 (08:51→20:10)
[2022-12-27] MEDS: HYDROMORPHONE 0.5 MG SYG (0.5MG/0.5ML) IVP PRN ×2 (08:53→20:10)
[2022-12-27 11:53] VITALS: BP 140/50
[2022-12-27 16:00] VITALS: BP 121/57
[2022-12-27 20:00] VITALS: BP 131/69
[2022-12-28] VITALS: BP 131/62
[2022-12-28 04:00] VITALS: BP 131/64
[2022-12-28] MEDS ORDERED: FOLI0.8T3 PO (06:41)
[2022-12-28] MEDS ORDERED: TRAM50TA4 PO (06:41)
[2022-12-28 07:05] VITALS: BP 126/64
[2022-12-28] MEDS: FOLIC ACID 1 MG TABLET PO SCH (08:09)
[2022-12-28] MEDS: SPIRONOLACTONE 25 MG TAB PO SCH ×2 (08:09→21:16)
[2022-12-28] MEDS: LACTULOSE 20 GM/30 ML UDCUP PO SCH (08:09)
[2022-12-28] MEDS: PANTOPRAZOLE 40 MG TAB DR PO SCH (08:10)
[2022-12-28] MEDS: FUROSEMIDE 40 MG TABLET PO SCH (08:10)
[2022-12-28] MEDS: HYDROMORPHONE 0.5 MG SYG (0.5MG/0.5ML) IVP PRN ×3 (08:11→21:22)
[2022-12-28] MEDS: ONDANSETRON 4MG INJ IVP PRN ×2 (08:19→17:01)
[2022-12-28 11:35] VITALS: BP 112/75
[2022-12-28 15:30] VITALS: BP 114/59
[2022-12-28 20:00] VITALS: BP 136/70
[2022-12-29] VITALS: BP 147/81
[2022-12-29] MEDS: HYDROMORPHONE 0.5 MG SYG (0.5MG/0.5ML) IVP PRN ×3 (04:03→17:03)
[2022-12-29 05:07] VITALS: BP 117/62
[2022-12-29 07:35] VITALS: BP 134/69
[2022-12-29] MEDS: PANTOPRAZOLE 40 MG TAB DR PO SCH (09:04)
[2022-12-29] MEDS: LACTULOSE 20 GM/30 ML UDCUP PO SCH (09:05)
[2022-12-29] MEDS: FUROSEMIDE 40 MG TABLET PO SCH (09:05)
[2022-12-29] MEDS: GABAPENTIN 300 MG CAPSULE PO SCH ×2 (09:05→22:29)
[2022-12-29] MEDS: SPIRONOLACTONE 25 MG TAB PO SCH ×2 (09:05→22:29)
[2022-12-29] MEDS: FOLIC ACID 1 MG TABLET PO SCH (09:05)
[2022-12-29] MEDS: ONDANSETRON 4MG INJ IVP PRN ×2 (09:07→17:04)
[2022-12-29] MEDS ORDERED: METOPROLOL SUCCINATE 25 MG TAB.SR.24H PO ONE (11:00)
[2022-12-29 11:35] VITALS: BP 103/68
[2022-12-29 15:40] VITALS: BP 128/61
[2022-12-29 20:00] VITALS: BP 113/52
[2022-12-29] MEDS: ATORVASTATIN 40 MG TABLET PO SCH (22:29)
[2022-12-30] VITALS (7 sets, daily range): BP systolic 99–131; BP diastolic 47–76
[2022-12-30] MEDS: HYDROMORPHONE 0.5 MG SYG (0.5MG/0.5ML) IVP PRN ×2 (00:13→10:10)
[2022-12-30] MEDS: ONDANSETRON 4MG INJ IVP PRN ×2 (00:17→10:10)
[2022-12-30] MEDS: SPIRONOLACTONE 25 MG TAB PO SCH ×2 (10:09→21:28)
[2022-12-30] MEDS: LACTULOSE 20 GM/30 ML UDCUP PO SCH (10:09)
[2022-12-30] MEDS: FUROSEMIDE 40 MG TABLET PO SCH (10:10)
[2022-12-30] MEDS: FOLIC ACID 1 MG TABLET PO SCH (10:10)
[2022-12-30] MEDS: PANTOPRAZOLE 40 MG TAB DR PO SCH (10:11)
[2022-12-30] MEDS: GABAPENTIN 300 MG CAPSULE PO SCH ×2 (10:11→21:28)
[2022-12-30] MEDS: LACTULOSE 20 GM/30 ML UDCUP PO PRN (17:54)
[2022-12-30] MEDS: ATORVASTATIN 40 MG TABLET PO SCH (21:00)
[2022-12-31 03:43] VITALS: BP 116/69
[2022-12-31 07:40] VITALS: BP 114/54
[2022-12-31] MEDS: LACTULOSE 20 GM/30 ML UDCUP PO SCH (08:40)
[2022-12-31] MEDS: FOLIC ACID 1 MG TABLET PO SCH (08:41)
[2022-12-31] MEDS: PANTOPRAZOLE 40 MG TAB DR PO SCH (08:41)
[2022-12-31] MEDS: FUROSEMIDE 40 MG TABLET PO SCH (08:41)
[2022-12-31] MEDS: SPIRONOLACTONE 25 MG TAB PO SCH ×2 (08:41→21:45)
[2022-12-31] MEDS: GABAPENTIN 300 MG CAPSULE PO SCH ×2 (08:41→21:39)
[2022-12-31 11:20] VITALS: BP 106/66
[2022-12-31 15:40] VITALS: BP 101/54
[2022-12-31 20:42] VITALS: BP 126/55
[2022-12-31] MEDS: ATORVASTATIN 40 MG TABLET PO SCH (21:40)
[2022-12-31 23:52] VITALS: BP 128/59
[2023-01-01] VITALS (8 sets, daily range): BP systolic 89–142; BP diastolic 54–81
[2023-01-01] MEDS: PANTOPRAZOLE 40 MG TAB DR PO SCH (08:17)
[2023-01-01] MEDS: LACTULOSE 20 GM/30 ML UDCUP PO SCH (08:17)
[2023-01-01] MEDS: SPIRONOLACTONE 25 MG TAB PO SCH ×2 (08:17→21:02)
[2023-01-01] MEDS: FOLIC ACID 1 MG TABLET PO SCH (08:17)
[2023-01-01] MEDS: GABAPENTIN 300 MG CAPSULE PO SCH ×2 (08:18→21:02)
[2023-01-01] MEDS: FUROSEMIDE 40 MG TABLET PO SCH (08:18)
[2023-01-01 09:31] LABS: HEMATOCRIT 30.6 % (36-48); MEAN CORPUSCULAR HEMOGLOBIN 32.7 pg (27.0-33.0); MEAN CORPUSCULAR HGB CONC 34.3 g/dL (32.0-36.0); MEAN CORPUSCULAR VOLUME 95.3 fL (79-99); RED BLOOD CELL COUNT(AUTO) 3.21 MIL/uL (4.00-5.50); RED CELL DISTRIBUTION WIDTH 14.9 % (11.0-15.5); WHITE BLOOD COUNT (AUTO) 12.9 K/uL (4.8-10.8)
[2023-01-01 09:38] LABS: CREATININE 2.2 mg/dL (0.5-1.5); POTASSIUM 5.5 mmol/L (3.5-5.1)
[2023-01-01] MEDS: LACTULOSE 20 GM/30 ML UDCUP PO PRN ×2 (10:58→14:27)
[2023-01-01 13:23] LABS: ABG BASE EXCESS -0.3 mmol/L (-2.0-3.0); ABG HCO3 21.3 mmol/L (21.0-28.0); ABG OXYGEN SATURATION 98.1 % (95.0-99.0); ABG PCO2 27 mmHg (32-45)
[2023-01-01] MEDS: ATORVASTATIN 40 MG TABLET PO SCH (21:02)
[2023-01-02] VITALS (7 sets, daily range): BP systolic 121–152; BP diastolic 51–104
[2023-01-02 06:29] LABS: HEMATOCRIT 31.8 % (36-48); MEAN CORPUSCULAR HEMOGLOBIN 32.3 pg (27.0-33.0); MEAN CORPUSCULAR VOLUME 97.8 fL (79-99); RED BLOOD CELL COUNT(AUTO) 3.25 MIL/uL (4.00-5.50); RED CELL DISTRIBUTION WIDTH 15.1 % (11.0-15.5); WHITE BLOOD COUNT (AUTO) 16.4 K/uL (4.8-10.8)
[2023-01-02 06:51] LABS: CREATININE 2.2 mg/dL (0.5-1.5); POTASSIUM 5.5 mmol/L (3.5-5.1); TOTAL PROTEIN, SERUM 6.5 g/dL (6.0-8.3)
[2023-01-02] MEDS: SPIRONOLACTONE 25 MG TAB PO SCH ×2 (11:32→20:48)
[2023-01-02] MEDS: FUROSEMIDE 40 MG TABLET PO SCH (11:33)
[2023-01-02] MEDS: PANTOPRAZOLE 40 MG TAB DR PO SCH (11:33)
[2023-01-02] MEDS: FOLIC ACID 1 MG TABLET PO SCH (11:33)
[2023-01-02] MEDS: LACTULOSE 20 GM/30 ML UDCUP PO SCH (11:33)
[2023-01-02] MEDS: GABAPENTIN 300 MG CAPSULE PO SCH ×2 (11:34→20:48)
[2023-01-02] MEDS: LACTULOSE 20 GM/30 ML UDCUP PO PRN (20:48)
[2023-01-02] MEDS: ATORVASTATIN 40 MG TABLET PO SCH (20:48)
[2023-01-03 04:00] VITALS: BP 130/59
[2023-01-03 06:04] LABS: MEAN CORPUSCULAR HEMOGLOBIN 32.4 pg (27.0-33.0); MEAN CORPUSCULAR HGB CONC 33.6 g/dL (32.0-36.0); MEAN CORPUSCULAR VOLUME 96.6 fL (79-99); RED BLOOD CELL COUNT(AUTO) 2.9 MIL/uL (4.00-5.50); RED CELL DISTRIBUTION WIDTH 15.3 % (11.0-15.5); WHITE BLOOD COUNT (AUTO) 13.3 K/uL (4.8-10.8)
[2023-01-03 06:19] LABS: ALBUMIN 1.8 g/dL (3.5-5.0); CREATININE 1.9 mg/dL (0.5-1.5); POTASSIUM 4.4 mmol/L (3.5-5.1); TOTAL PROTEIN, SERUM 5.9 g/dL (6.0-8.3)
[2023-01-03 08:01] VITALS: BP 124/71
[2023-01-03] MEDS: GABAPENTIN 300 MG CAPSULE PO SCH ×2 (11:08→20:54)
[2023-01-03] MEDS: CALCITONIN 3.7 ML AEROSOL NS SCH (11:08)
[2023-01-03] MEDS: PANTOPRAZOLE 40 MG TAB DR PO SCH (11:08)
[2023-01-03] MEDS: SPIRONOLACTONE 25 MG TAB PO SCH ×2 (11:09→20:54)
[2023-01-03] MEDS: FOLIC ACID 1 MG TABLET PO SCH (11:09)
[2023-01-03] MEDS: LACTULOSE 20 GM/30 ML UDCUP PO SCH ×2 (11:09→20:54)
[2023-01-03] MEDS: FUROSEMIDE 40 MG TABLET PO SCH (11:09)
[2023-01-03 11:14] VITALS: BP 136/72
[2023-01-03 15:57] VITALS: BP 110/59
[2023-01-03 19:57] VITALS: BP 107/59
[2023-01-03] MEDS: ATORVASTATIN 40 MG TABLET PO SCH (20:54)
[2023-01-03 23:10] VITALS: BP 101/53
[2023-01-04 03:41] VITALS: BP 106/59
[2023-01-04 09:21] VITALS: BP 125/93
[2023-01-04] MEDS: SPIRONOLACTONE 25 MG TAB PO SCH ×2 (09:37→19:46)
[2023-01-04] MEDS: LACTULOSE 20 GM/30 ML UDCUP PO SCH ×2 (09:37→19:47)
[2023-01-04] MEDS: PANTOPRAZOLE 40 MG TAB DR PO SCH (09:37)
[2023-01-04] MEDS: GABAPENTIN 300 MG CAPSULE PO SCH ×2 (09:37→19:46)
[2023-01-04] MEDS: FUROSEMIDE 40 MG TABLET PO SCH (09:37)
[2023-01-04] MEDS: FOLIC ACID 1 MG TABLET PO SCH (09:37)
[2023-01-04] MEDS: CALCITONIN 3.7 ML AEROSOL NS SCH (09:40)
[2023-01-04 12:42] VITALS: BP 103/47
[2023-01-04 16:34] VITALS: BP 115/66
[2023-01-04] MEDS: ATORVASTATIN 40 MG TABLET PO SCH (19:46)
[2023-01-04 20:00] VITALS: BP 105/54
[2023-01-05] VITALS: BP 116/58
[2023-01-05 04:00] VITALS: BP 109/61
[2023-01-05 08:00] VITALS: BP 106/61
[2023-01-05] MEDS: GABAPENTIN 300 MG CAPSULE PO SCH ×2 (08:54→19:56)
[2023-01-05] MEDS: SPIRONOLACTONE 25 MG TAB PO SCH ×2 (08:54→19:56)
[2023-01-05] MEDS: FUROSEMIDE 40 MG TABLET PO SCH (08:54)
[2023-01-05] MEDS: CALCITONIN 3.7 ML AEROSOL NS SCH (08:54)
[2023-01-05] MEDS: FOLIC ACID 1 MG TABLET PO SCH (08:54)
[2023-01-05] MEDS: LACTULOSE 20 GM/30 ML UDCUP PO SCH ×2 (08:54→19:56)
[2023-01-05] MEDS: PANTOPRAZOLE 40 MG TAB DR PO SCH (08:54)
[2023-01-05 12:00] VITALS: BP 119/77
[2023-01-05 16:00] VITALS: BP 127/63
[2023-01-05] MEDS: ATORVASTATIN 40 MG TABLET PO SCH (19:56)
[2023-01-05 20:00] VITALS: BP 133/67
[2023-01-06] VITALS: BP 138/74
[2023-01-06 04:00] VITALS: BP 146/66
[2023-01-06 05:45] LABS: HEMATOCRIT 28.7 % (36-48); MEAN CORPUSCULAR HEMOGLOBIN 32.3 pg (27.0-33.0); MEAN CORPUSCULAR HGB CONC 33.8 g/dL (32.0-36.0); MEAN CORPUSCULAR VOLUME 95.7 fL (79-99); RED CELL DISTRIBUTION WIDTH 14.4 % (11.0-15.5); WHITE BLOOD COUNT (AUTO) 9.6 K/uL (4.8-10.8)
[2023-01-06 06:04] LABS: CREATININE 1.9 mg/dL (0.5-1.5); POTASSIUM 4.7 mmol/L (3.5-5.1)
[2023-01-06 08:00] VITALS: BP 123/75
[2023-01-06] MEDS: LACTULOSE 20 GM/30 ML UDCUP PO PRN (08:00)
[2023-01-06] MEDS: LACTULOSE 20 GM/30 ML UDCUP PO SCH ×3 (08:00→23:54)
[2023-01-06] MEDS: FUROSEMIDE 40 MG TABLET PO SCH (09:00)
[2023-01-06] MEDS: GABAPENTIN 300 MG CAPSULE PO SCH ×2 (09:00→21:00)
[2023-01-06] MEDS: FOLIC ACID 1 MG TABLET PO SCH (09:00)
[2023-01-06] MEDS: CALCITONIN 3.7 ML AEROSOL NS SCH (09:00)
[2023-01-06] MEDS: PANTOPRAZOLE 40 MG TAB DR PO SCH (09:00)
[2023-01-06] MEDS: SPIRONOLACTONE 25 MG TAB PO SCH (09:00)
[2023-01-06 12:05] VITALS: BP 139/59
[2023-01-06] MEDS ORDERED: LACTULOSE 20 GM/30 ML UDCUP NG PRN (13:30)
[2023-01-06] MEDS: 1/2 NS 1000ML 1,000 ML IV SCH (14:32)
[2023-01-06 17:05] VITALS: BP 135/75
[2023-01-06 20:00] VITALS: BP 159/80
[2023-01-07] VITALS (7 sets, daily range): BP systolic 103–152; BP diastolic 45–79
[2023-01-07] MEDS: SPIRONOLACTONE 25 MG TAB PO SCH ×3 (00:13→21:38)
[2023-01-07] MEDS: RIFAXIMIN 550 MG TABLET PO SCH ×3 (00:13→21:38)
[2023-01-07] MEDS: GABAPENTIN 300 MG CAPSULE PO SCH ×3 (00:14→21:39)
[2023-01-07] MEDS: ATORVASTATIN 40 MG TABLET PO SCH ×2 (00:14→21:39)
[2023-01-07] MEDS: 1/2 NS 1000ML 1,000 ML IV SCH (06:25)
[2023-01-07] MEDS ORDERED: LACTULOSE 20 GM/30 ML UDCUP PO SCH (06:30)
[2023-01-07 07:15] LABS: BASOPHILS % (AUTO) 0.9 % (0.0-5.0); EOSINOPHILS % (AUTO) 1.9 % (0.0-8.0); HEMATOCRIT 30.6 % (36-48); LYMPHOCYTES % (AUTO) 16.8 % (21.0-51.0); MEAN CORPUSCULAR HEMOGLOBIN 31.5 pg (27.0-33.0); MEAN CORPUSCULAR HGB CONC 33.3 g/dL (32.0-36.0); MEAN CORPUSCULAR VOLUME 94.4 fL (79-99); MONOCYTES % (AUTO) 23.4 % (3.0-13.0); NEUTROPHILS % (AUTO) 56.5 % (40.0-77.0); PLATELET COUNT (AUTO) 342 K/uL (130-400); RED BLOOD CELL COUNT(AUTO) 3.24 MIL/uL (4.00-5.50); RED CELL DISTRIBUTION WIDTH 14.6 % (11.0-15.5); WHITE BLOOD COUNT (AUTO) 10.5 K/uL (4.8-10.8)
[2023-01-07 07:32] LABS: CREATININE 1.8 mg/dL (0.5-1.5); POTASSIUM 4.4 mmol/L (3.5-5.1)
[2023-01-07] MEDS: LACTULOSE 20 GM/30 ML UDCUP PO SCH ×6 (08:00→21:38)
[2023-01-07] MEDS: CALCITONIN 3.7 ML AEROSOL NS SCH (09:00)
[2023-01-07] MEDS: FOLIC ACID 1 MG TABLET PO SCH (10:46)
[2023-01-07] MEDS: FUROSEMIDE 40 MG TABLET PO SCH (10:47)
[2023-01-07] MEDS: PANTOPRAZOLE 40 MG TAB DR PO SCH (10:48)
[2023-01-08] MEDS: LACTULOSE 20 GM/30 ML UDCUP PO SCH ×5 (01:03→22:29)
[2023-01-08] MEDS: 1/2 NS 1000ML 1,000 ML IV SCH (02:31)
[2023-01-08 04:19] VITALS: BP 145/67
[2023-01-08 06:02] LABS: HEMATOCRIT 28.6 % (36-48); MEAN CORPUSCULAR HGB CONC 33.2 g/dL (32.0-36.0); MEAN CORPUSCULAR VOLUME 96.3 fL (79-99); RED BLOOD CELL COUNT(AUTO) 2.97 MIL/uL (4.00-5.50); RED CELL DISTRIBUTION WIDTH 14.5 % (11.0-15.5); WHITE BLOOD COUNT (AUTO) 11.3 K/uL (4.8-10.8)
[2023-01-08 06:13] LABS: CREATININE 1.9 mg/dL (0.5-1.5); POTASSIUM 3.8 mmol/L (3.5-5.1)
[2023-01-08 08:00] VITALS: BP 134/69
[2023-01-08] MEDS: CALCITONIN 3.7 ML AEROSOL NS SCH (09:00)
[2023-01-08] MEDS: RIFAXIMIN 550 MG TABLET PO SCH ×2 (10:19→22:29)
[2023-01-08] MEDS: SPIRONOLACTONE 25 MG TAB PO SCH ×2 (10:19→22:28)
[2023-01-08] MEDS: FOLIC ACID 1 MG TABLET PO SCH (10:19)
[2023-01-08] MEDS: PANTOPRAZOLE 40 MG TAB DR PO SCH (10:19)
[2023-01-08] MEDS: FUROSEMIDE 40 MG TABLET PO SCH (10:20)
[2023-01-08] MEDS: GABAPENTIN 300 MG CAPSULE PO SCH ×2 (10:20→22:29)
[2023-01-08 12:00] VITALS: BP 112/63
[2023-01-08 16:00] VITALS: BP 127/68
[2023-01-08 19:53] VITALS: BP 119/55
[2023-01-08] MEDS: ATORVASTATIN 40 MG TABLET PO SCH (22:29)
[2023-01-08] MEDS: ONDANSETRON 4MG INJ IVP PRN (22:45)
[2023-01-09] VITALS (7 sets, daily range): BP systolic 96–128; BP diastolic 35–74
[2023-01-09] MEDS: 1/2 NS 1000ML 1,000 ML IV SCH ×2 (01:30→20:09)
[2023-01-09 06:22] LABS: HEMATOCRIT 25.4 % (36-48); MEAN CORPUSCULAR HEMOGLOBIN 31.6 pg (27.0-33.0); MEAN CORPUSCULAR HGB CONC 33.5 g/dL (32.0-36.0); MEAN CORPUSCULAR VOLUME 94.4 fL (79-99); RED BLOOD CELL COUNT(AUTO) 2.69 MIL/uL (4.00-5.50); RED CELL DISTRIBUTION WIDTH 14.8 % (11.0-15.5); WHITE BLOOD COUNT (AUTO) 10.9 K/uL (4.8-10.8)
[2023-01-09 06:27] LABS: CREATININE 1.8 mg/dL (0.5-1.5); POTASSIUM 3.3 mmol/L (3.5-5.1)
[2023-01-09] MEDS: RIFAXIMIN 550 MG TABLET PO SCH ×2 (09:09→20:08)
[2023-01-09] MEDS: SPIRONOLACTONE 25 MG TAB PO SCH ×2 (09:09→20:09)
[2023-01-09] MEDS: FOLIC ACID 1 MG TABLET PO SCH (09:10)
[2023-01-09] MEDS: GABAPENTIN 300 MG CAPSULE PO SCH ×2 (09:10→20:09)
[2023-01-09] MEDS: LACTULOSE 20 GM/30 ML UDCUP PO SCH ×3 (09:10→20:08)
[2023-01-09] MEDS: FUROSEMIDE 40 MG TABLET PO SCH (09:10)
[2023-01-09] MEDS: CALCITONIN 3.7 ML AEROSOL NS SCH (09:10)
[2023-01-09] MEDS: PANTOPRAZOLE 40 MG TAB DR PO SCH (09:10)
[2023-01-09] MEDS: ATORVASTATIN 40 MG TABLET PO SCH (20:09)
[2023-01-10 03:56] VITALS: BP 110/59
[2023-01-10 07:30] VITALS: BP 116/57
[2023-01-10] MEDS: FUROSEMIDE 40 MG TABLET PO SCH (08:59)
[2023-01-10] MEDS: SPIRONOLACTONE 25 MG TAB PO SCH ×2 (08:59→20:05)
[2023-01-10] MEDS: LACTULOSE 20 GM/30 ML UDCUP PO SCH ×3 (08:59→20:01)
[2023-01-10] MEDS: PANTOPRAZOLE 40 MG TAB DR PO SCH (09:00)
[2023-01-10] MEDS: FOLIC ACID 1 MG TABLET PO SCH (09:00)
[2023-01-10] MEDS: RIFAXIMIN 550 MG TABLET PO SCH ×2 (09:00→20:05)
[2023-01-10] MEDS: GABAPENTIN 300 MG CAPSULE PO SCH ×2 (09:00→20:04)
[2023-01-10] MEDS: CALCITONIN 3.7 ML AEROSOL NS SCH (09:00)
[2023-01-10 11:00] VITALS: BP 108/57
[2023-01-10 16:00] VITALS: BP 81/47
[2023-01-10] MEDS: 1/2 NS 1000ML 1,000 ML IV SCH (16:36)
[2023-01-10 19:54] VITALS: BP 111/59
[2023-01-10] MEDS: ATORVASTATIN 40 MG TABLET PO SCH (20:01)
[2023-01-10 23:43] VITALS: BP 117/50
[2023-01-11 04:00] VITALS: BP 121/70
[2023-01-11 08:00] VITALS: BP 118/64
[2023-01-11] MEDS: LACTULOSE 20 GM/30 ML UDCUP PO SCH ×3 (11:52→22:01)
[2023-01-11] MEDS: GABAPENTIN 300 MG CAPSULE PO SCH ×2 (11:52→22:01)
[2023-01-11] MEDS: FUROSEMIDE 40 MG TABLET PO SCH (11:53)
[2023-01-11] MEDS: FOLIC ACID 1 MG TABLET PO SCH (11:53)
[2023-01-11] MEDS: PANTOPRAZOLE 40 MG TAB DR PO SCH (11:53)
[2023-01-11] MEDS: RIFAXIMIN 550 MG TABLET PO SCH ×2 (11:53→22:01)
[2023-01-11] MEDS: SPIRONOLACTONE 25 MG TAB PO SCH ×2 (11:53→22:01)
[2023-01-11 12:00] VITALS: BP 102/56
[2023-01-11] MEDS: CALCITONIN 3.7 ML AEROSOL NS SCH (12:04)
[2023-01-11] MEDS: 1/2 NS 1000ML 1,000 ML IV SCH (13:30)
[2023-01-11 16:00] VITALS: BP 108/54
[2023-01-11 19:28] VITALS: BP 122/57
[2023-01-11] MEDS: ATORVASTATIN 40 MG TABLET PO SCH (22:01)
[2023-01-11 23:40] VITALS: BP 115/65
[2023-01-12 04:12] VITALS: BP 111/54
[2023-01-12 06:09] LABS: HEMATOCRIT 26.6 % (36-48); MEAN CORPUSCULAR HEMOGLOBIN 31.2 pg (27.0-33.0); MEAN CORPUSCULAR HGB CONC 33.5 g/dL (32.0-36.0); MEAN CORPUSCULAR VOLUME 93.3 fL (79-99); RED BLOOD CELL COUNT(AUTO) 2.85 MIL/uL (4.00-5.50); RED CELL DISTRIBUTION WIDTH 13.8 % (11.0-15.5); WHITE BLOOD COUNT (AUTO) 11.2 K/uL (4.8-10.8)
[2023-01-12 06:23] LABS: ALBUMIN 1.6 g/dL (3.5-5.0); CREATININE 2.2 mg/dL (0.5-1.5); POTASSIUM 3.3 mmol/L (3.5-5.1)
[2023-01-12 08:00] VITALS: BP 105/54
[2023-01-12] MEDS: 1/2 NS 1000ML 1,000 ML IV SCH (09:30)
[2023-01-12] MEDS: RIFAXIMIN 550 MG TABLET PO SCH ×2 (09:38→21:02)
[2023-01-12] MEDS: FUROSEMIDE 40 MG TABLET PO SCH (09:38)
[2023-01-12] MEDS: PANTOPRAZOLE 40 MG TAB DR PO SCH (09:38)
[2023-01-12] MEDS: LACTULOSE 20 GM/30 ML UDCUP PO SCH ×3 (09:38→21:01)
[2023-01-12] MEDS: GABAPENTIN 300 MG CAPSULE PO SCH ×2 (09:39→21:01)
[2023-01-12] MEDS: CALCITONIN 3.7 ML AEROSOL NS SCH (09:39)
[2023-01-12] MEDS: FOLIC ACID 1 MG TABLET PO SCH (09:39)
[2023-01-12] MEDS: SPIRONOLACTONE 25 MG TAB PO SCH ×2 (09:39→21:01)
[2023-01-12 12:00] VITALS: BP 105/42
[2023-01-12 16:00] VITALS: BP 117/68
[2023-01-12] MEDS ORDERED: POTASSIUM CHLORIDE 10% ELIXIR 20 MEQ/15 ML UDCUP PO PRN (16:00)
[2023-01-12] MEDS ORDERED: POTASSIUM CHLORIDE 20MEQ/100ML 100 ML IV PRN ×2 (16:00)
[2023-01-12] MEDS: KCL 20 MEQ ERTAB PO PRN ×2 (16:30→16:32)
[2023-01-12 20:31] VITALS: BP 109/55
[2023-01-12] MEDS: ATORVASTATIN 40 MG TABLET PO SCH (21:02)
[2023-01-12 23:58] VITALS: BP 104/52
[2023-01-13 04:40] VITALS: BP 105/51
[2023-01-13 07:29] VITALS: BP 102/54
[2023-01-13 09:03] LABS: POTASSIUM 3.9 mmol/L (3.5-5.1)
[2023-01-13] MEDS: LACTULOSE 20 GM/30 ML UDCUP PO SCH ×2 (09:10→13:08)
[2023-01-13] MEDS: SPIRONOLACTONE 25 MG TAB PO SCH (09:10)
[2023-01-13] MEDS: RIFAXIMIN 550 MG TABLET PO SCH (09:10)
[2023-01-13] MEDS: GABAPENTIN 300 MG CAPSULE PO SCH (09:11)
[2023-01-13] MEDS: FOLIC ACID 1 MG TABLET PO SCH (09:11)
[2023-01-13] MEDS: PANTOPRAZOLE 40 MG TAB DR PO SCH (09:11)
[2023-01-13] MEDS: FUROSEMIDE 40 MG TABLET PO SCH (09:11)
[2023-01-13] MEDS: CALCITONIN 3.7 ML AEROSOL NS SCH (09:15)
[2023-01-13 10:59] VITALS: BP 102/57
[2023-01-13 15:30] VITALS: BP 100/50
== END 2023-01-13 16:35 | DRG 441 ==
LOC: EDH 11:51 → EDHIP 16:18 → 3DH 20:20
PROVIDERS: ADMIT Internal Medicine; ATTEND Internal Medicine
DX: K76.82 Hepatic encephalopathy (principal); G93.41 Metabolic encephalopathy; I24.8 Other forms of acute ischemic heart disease; M48.56XA Collapsed vertebra, not elsewhere classified, lumbar region, initial encounter for fracture; Z68.41 Body mass index [BMI] 40.0-44.9, adult; R18.8 Other ascites; K74.60 Unspecified cirrhosis of liver; E78.5 Hyperlipidemia, unspecified; E66.01 Morbid (severe) obesity due to excess calories; I25.10 Atherosclerotic heart disease of native coronary artery without angina pectoris; D64.9 Anemia, unspecified; N18.9 Chronic kidney disease, unspecified; G89.29 Other chronic pain; K72.90 Hepatic failure, unspecified without coma; I12.9 Hypertensive chronic kidney disease with stage 1 through stage 4 chronic kidney disease, or unspecified chronic kidney disease; Z87.11 Personal history of peptic ulcer disease; Z90.81 Acquired absence of spleen; Z88.6 Allergy status to analgesic agent; Z79.82 Long term (current) use of aspirin
CPT/HCPCS: 36415; 36600; 71045; 72146; 72148; 80048; 80053; 82140; 82550; 82803; 82948; 83735; 83874; 84132; 84484; 85025; 85027; 93005; 93306; 97039; G0378; J1170; J2405

== ENCOUNTER 2023-01-27 08:34 | Observation (INO) | payer MEDICARE ==
[~2023-01-27] VITALS: Ht 144.8 cm; Wt 106.6 kg
[~2023-01-27 08:34] MED LIST changes: +FOLI0.8T3 PO; +TRAM50TA4 PO
[2023-01-27 08:48] LABS: BASOPHILS % (AUTO) 0.5 % (0.0-5.0); EOSINOPHILS % (AUTO) 0.8 % (0.0-8.0); HEMATOCRIT 29.7 % (36-48); LYMPHOCYTES % (AUTO) 25.5 % (21.0-51.0); MEAN CORPUSCULAR HEMOGLOBIN 30.5 pg (27.0-33.0); MEAN CORPUSCULAR HGB CONC 34.3 g/dL (32.0-36.0); MEAN CORPUSCULAR VOLUME 88.9 fL (79-99); MONOCYTES % (AUTO) 17.7 % (3.0-13.0); NEUTROPHILS % (AUTO) 55.1 % (40.0-77.0); PLATELET COUNT (AUTO) 255 K/uL (130-400); RED BLOOD CELL COUNT(AUTO) 3.34 MIL/uL (4.00-5.50); RED CELL DISTRIBUTION WIDTH 14.7 % (11.0-15.5); WHITE BLOOD COUNT (AUTO) 10.2 K/uL (4.8-10.8)
[2023-01-27 08:55] LABS: CREATININE 2.1 mg/dL (0.5-1.5); POTASSIUM 5.2 mmol/L (3.5-5.1)
[2023-01-27 08:58] LABS: APPEARANCE,URINE TURBID (CLEAR); BILIRUBIN,URINE NEGATIVE (NEGATIVE); COLOR,URINE LIGHT-ORANGE (YELLOW); GLUCOSE, URINE (UA) NEGATIVE (NEGATIVE); KETONES,URINE NEGATIVE (NEGATIVE); LEUKOCYTE ESTERASE ,URINE 500 Leu/uL (NEGATIVE); NITRATE,URINE NEGATIVE (NEGATIVE); OCCULT BLOOD,URINE LARGE (NEGATIVE); PROTEIN,URINE 30 mg/dL (NEGATIVE); UROBILINOGEN,URINE 0.2 mg/dL (0.2-1.0)
[2023-01-27 09:05] LABS: BACTERIA,URINE MOD /HPF (None Seen); MUCUS,URINE MANY LPF (None Seen); RBC,URINE 0-1 /HPF (0-1); WBC,URINE 51-100 /HPF (0-1)
[2023-01-27 09:12] LABS: ALBUMIN 2.1 g/dL (3.5-5.0); TOTAL PROTEIN, SERUM 7.2 g/dL (6.0-8.3)
[2023-01-27] MEDS ORDERED: LACTULOSE 20 GM/30 ML UDCUP PR ONE (09:30)
[2023-01-27] MEDS ORDERED: 0.9% NACL 500ML IV.SOLN 500 ML IV ONE (09:30)
[2023-01-27] MEDS ORDERED: CEFTRIAXONE 1G VIAL IVPB ONE (10:30)
[2023-01-27] MEDS ORDERED: 0.9%NACL 1000ML 1,000 ML IV ONE (10:30)
[2023-01-27 11:55] VITALS: BP 109/68
[2023-01-27] MEDS: DEXTROSE 5 %-0.45 % NACL 1,000 ML IV SCH (12:00)
[2023-01-27 16:00] VITALS: BP 121/74
[2023-01-27] MEDS ORDERED: HALOPERIDOL INJ 5 MG/ML VIAL IV SCH (18:00)
[2023-01-27 20:09] VITALS: BP 98/48
[2023-01-27] MEDS: LACTULOSE 20 GM/30 ML UDCUP PR SCH (21:32)
[2023-01-28 00:53] VITALS: BP 101/50
[2023-01-28 04:38] VITALS: BP 104/74
[2023-01-28 05:44] LABS: EOSINOPHILS % (AUTO) 4.2 % (0.0-8.0); HEMATOCRIT 26.1 % (36-48); LYMPHOCYTES % (AUTO) 31.1 % (21.0-51.0); MEAN CORPUSCULAR HEMOGLOBIN 30.6 pg (27.0-33.0); MEAN CORPUSCULAR HGB CONC 33.7 g/dL (32.0-36.0); MEAN CORPUSCULAR VOLUME 90.6 fL (79-99); MONOCYTES % (AUTO) 15.8 % (3.0-13.0); NEUTROPHILS % (AUTO) 47.5 % (40.0-77.0); PLATELET COUNT (AUTO) 234 K/uL (130-400); RED BLOOD CELL COUNT(AUTO) 2.88 MIL/uL (4.00-5.50)
[2023-01-28 05:57] LABS: ALBUMIN 1.4 g/dL (3.5-5.0); CREATININE 1.7 mg/dL (0.5-1.5); POTASSIUM 4.5 mmol/L (3.5-5.1); TOTAL PROTEIN, SERUM 5.8 g/dL (6.0-8.3)
[2023-01-28] MEDS: DEXTROSE 5 %-0.45 % NACL 1,000 ML IV SCH (08:37)
[2023-01-28] MEDS: LACTULOSE 20 GM/30 ML UDCUP PO SCH ×3 (08:37→16:00)
[2023-01-28] MEDS: LACTULOSE 20 GM/30 ML UDCUP PR SCH (09:38)
[2023-01-28 11:58] VITALS: BP 108/76
[2023-01-28 15:59] VITALS: BP 128/67
== END 2023-01-28 17:26 | disposition home or self-care (01) ==
LOC: EDH 08:34 → INTOOBSV 10:50 → EDHIP 10:50 → 3BH 11:55
PROVIDERS: ADMIT Internal Medicine; ATTEND Internal Medicine
DX: K76.82 Hepatic encephalopathy (principal); K74.60 Unspecified cirrhosis of liver; E66.9 Obesity, unspecified; D72.829 Elevated white blood cell count, unspecified; E72.20 Disorder of urea cycle metabolism, unspecified; N28.9 Disorder of kidney and ureter, unspecified; E87.5 Hyperkalemia; R41.82 Altered mental status, unspecified; K59.00 Constipation, unspecified; Z90.81 Acquired absence of spleen; Z79.899 Other long term (current) drug therapy; Z98.890 Other specified postprocedural states; Z90.49 Acquired absence of other specified parts of digestive tract; Z98.891 History of uterine scar from previous surgery; Z68.43 Body mass index [BMI] 50.0-59.9, adult
CPT/HCPCS: 96361 ×2; 96365; 99284; 82550; 84484; 80053 ×2; 83880; 82140 ×2; 85025 ×2; 87040 ×2; 87077; 87088; 87186; 83605 ×2; 81001; 36415 ×2; 93005; J7030; J0696; G0378 ×3

== ENCOUNTER 2023-09-02 15:33 | Inpatient (IN) | payer MEDICARE ==
[~2023-09-02] VITALS: Ht 149.9 cm; Wt 92.7 kg
[2023-09-02 16:04] LABS: BASOPHILS # (AUTO) 0.08 K/uL (0.00-0.20); BASOPHILS % (AUTO) 0.8 % (0.0-5.0); HEMATOCRIT 30.5 % (36-48); IMMATURE GRANULOCYTE ABSOLUTE 0.02 K/uL (0-1); LYMPHOCYTES # (AUTO) 4.5 K/uL (1.0-4.8); LYMPHOCYTES % (AUTO) 44.8 % (21.0-51.0); MEAN CORPUSCULAR HGB CONC 35.4 g/dL (32.0-36.0); MEAN CORPUSCULAR VOLUME 87.6 fL (79-99); MONOCYTES # (AUTO) 1.8 K/uL (0.1-1.0); MONOCYTES % (AUTO) 18.1 % (3.0-13.0); NEUTROPHILS # (AUTO) 3.4 K/uL (1.8-7.7); NEUTROPHILS % (AUTO) 34.1 % (40.0-77.0); PLATELET COUNT (AUTO) 261 K/uL (130-400); RED BLOOD CELL COUNT(AUTO) 3.48 MIL/uL (4.00-5.50); RED CELL DISTRIBUTION WIDTH 19.6 % (11.0-15.5)
[2023-09-02 16:25] LABS: CREATININE 1.8 mg/dL (0.5-1.5); POTASSIUM 4.9 mmol/L (3.5-5.1)
[2023-09-02 16:31] LABS: ALBUMIN 2.3 g/dL (3.5-5.0); BILIRUBIN,TOTAL 1.2 mg/dL (0.2-1.0)
[2023-09-02 18:43] LABS: CREATINE KINASE, TOTAL 69 U/L (21-232)
[2023-09-02 18:44] LABS: RAPID GROUP A STREP negative (NEGATIVE)
[2023-09-02 18:45] LABS: ALCOHOL, BLOOD < 3 mg/dL (0-10)
[2023-09-02 18:45] LABS: ADD UA MICROSCOPIC YES; APPEARANCE,URINE HAZY (CLEAR); BILIRUBIN,URINE NEGATIVE (NEGATIVE); COLOR,URINE YELLOW (YELLOW); GLUCOSE, URINE (UA) NEGATIVE (NEGATIVE); KETONES,URINE NEGATIVE (NEGATIVE); LEUKOCYTE ESTERASE ,URINE 500 Leu/uL (NEGATIVE); NITRATE,URINE NEGATIVE (NEGATIVE); PH,URINE 5.5 (5.0-8.0); PROTEIN,URINE 30 mg/dL (NEGATIVE); UROBILINOGEN,URINE 0.2 mg/dL (0.2-1.0)
[2023-09-02 18:58] LABS: COVID19 (SARS ANTIGEN RAPID) PRESUMPTIVE NEGATIVE (NEGATIVE); INFLUENZA TYPE A Negative For Type A (NEGATIVE); INFLUENZA TYPE B Negative For Type B (NEGATIVE)
[2023-09-02] MEDS ORDERED: LACTULOSE 20 GM/30 ML UDCUP PR ONE (19:00)
[2023-09-02 19:01] LABS: AMPHET/METH SCREEN,URINE NEGATIVE (NEGATIVE); BARBITURATE SCREEN, URINE NEGATIVE (NEGATIVE); BENZODIAZEPINES SCREEN,URINE NEGATIVE (NEGATIVE); CANNABINOID SCREEN,URINE NEGATIVE (NEGATIVE); COCAINE SCREEN,URINE NEGATIVE (NEGATIVE); OPIATE SCREEN,URINE NEGATIVE (NEGATIVE); PHENCYCLIDINE SCREEN,URINE NEGATIVE (NEGATIVE)
[2023-09-02] MEDS: DEXTROSE 5 %-0.45 % NACL 1,000 ML IV SCH (19:02)
[2023-09-02 19:07] LABS: BACTERIA,URINE MOD /HPF (None Seen); MUCUS,URINE RARE LPF (None Seen); SQUAMOUS EPITHELIAL CELL,UR RARE /HPF (0-2); WBC CLUMP FEW /HPF (0-1); WBC,URINE TNTC /HPF (0-1)
[2023-09-02] MEDS ORDERED: SPIR100T5 PO (23:36)
[2023-09-02] MEDS ORDERED: ERGO500093 PO (23:36)
[2023-09-02] MEDS ORDERED: ASCO100031 PO (23:36)
[2023-09-02] MEDS ORDERED: CELE-125 PO (23:36)
[2023-09-02] MEDS ORDERED: OMEP40CA21 PO (23:36)
[2023-09-02] MEDS ORDERED: LACT10SO5 PO (23:36)
[2023-09-02] MEDS ORDERED: ACET-2079 PO (23:36)
[2023-09-02] MEDS ORDERED: FURO40TA5 PO (23:36)
[2023-09-03] VITALS (7 sets, daily range): BP systolic 125–161; BP diastolic 47–83; PULSE 60–84; RESP 18–20; O2SAT 96–97
[2023-09-03 05:41] LABS: BASOPHILS # (AUTO) 0.07 K/uL (0.00-0.20); BASOPHILS % (AUTO) 0.9 % (0.0-5.0); EOSINOPHILS # (AUTO) 0.37 K/uL (0.00-0.70); EOSINOPHILS % (AUTO) 4.7 % (0.0-8.0); HEMATOCRIT 30.4 % (36-48); IMMATURE GRANULOCYTE ABSOLUTE 0.02 K/uL (0-1); LYMPHOCYTES # (AUTO) 3.6 K/uL (1.0-4.8); LYMPHOCYTES % (AUTO) 46.1 % (21.0-51.0); MEAN CORPUSCULAR HGB CONC 34.2 g/dL (32.0-36.0); MEAN CORPUSCULAR VOLUME 90.7 fL (79-99); MONOCYTES # (AUTO) 1.2 K/uL (0.1-1.0); MONOCYTES % (AUTO) 15.2 % (3.0-13.0); NEUTROPHILS # (AUTO) 2.6 K/uL (1.8-7.7); NEUTROPHILS % (AUTO) 32.8 % (40.0-77.0); PLATELET COUNT (AUTO) 234 K/uL (130-400); RED BLOOD CELL COUNT(AUTO) 3.35 MIL/uL (4.00-5.50); RED CELL DISTRIBUTION WIDTH 20.2 % (11.0-15.5); WHITE BLOOD COUNT (AUTO) 7.9 K/uL (4.8-10.8)
[2023-09-03 06:03] LABS: ALBUMIN 2.1 g/dL (3.5-5.0); BILIRUBIN,TOTAL 1.6 mg/dL (0.2-1.0); CREATININE 1.7 mg/dL (0.5-1.5); POTASSIUM 4.8 mmol/L (3.5-5.1); TOTAL PROTEIN, SERUM 6.6 g/dL (6.0-8.3)
[2023-09-03] MEDS ORDERED: LACTULOSE 20 GM/30 ML UDCUP PO ONE (06:30)
[2023-09-03] MEDS: CEFTRIAXONE 1G VIAL IVPB SCH (06:40)
[2023-09-03] MEDS: ERGOCALCIFEROL (VITAMIN D2) 50,000 UNIT CAPSULE PO SCH ×2 (09:00→10:00)
[2023-09-03] MEDS: FUROSEMIDE 40 MG TABLET PO SCH ×2 (09:00→10:02)
[2023-09-03] MEDS ORDERED: ACETAMINOPHEN WITH CODEINE 1 TAB TAB PO SCH (09:00)
[2023-09-03] MEDS ORDERED: NON-FORMULARY MEDICATION 1 EACH (Ascorbic Acid (Vitamin C) 1,000 MG) PO SCH (09:00)
[2023-09-03] MEDS: CELECOXIB 200 MG CAP PO SCH ×2 (09:00→21:00)
[2023-09-03] MEDS: PANTOPRAZOLE 40 MG TAB DR PO SCH ×2 (09:00→10:00)
[2023-09-03] MEDS: ASCORBIC ACID 500 MG TAB PO SCH ×2 (09:00→10:00)
[2023-09-03] MEDS ORDERED: NON-FORMULARY MEDICATION 1 EACH (Omeprazole 40 MG) PO SCH (09:00)
[2023-09-03] MEDS ORDERED: CEFTRIAXONE 1G VIAL IVPB SCH (09:00)
[2023-09-03] MEDS: LACTULOSE 20 GM/30 ML UDCUP PO SCH ×4 (09:00→21:00)
[2023-09-03] MEDS ORDERED: ERGOCALCIFEROL (VITAMIN D2) 50,000 UNIT CAPSULE PO SCH (09:00)
[2023-09-03] MEDS: PHARMACY COMMUNICATION MISC SCH ×4 (09:30→15:02)
[2023-09-03] MEDS: DEXTROSE 5 %-0.45 % NACL 1,000 ML IV SCH (19:00)
[2023-09-03] MEDS: SPIRONOLACTONE 100 MG PO SCH (21:00)
[2023-09-04] VITALS (8 sets, daily range): BP systolic 117–143; BP diastolic 49–85; PULSE 60–71; RESP 16–20; O2SAT 97–98
[2023-09-04 05:04] LABS: BASOPHILS % (AUTO) 1.4 % (0.0-5.0); EOSINOPHILS # (AUTO) 0.44 K/uL (0.00-0.70); EOSINOPHILS % (AUTO) 6.4 % (0.0-8.0); HEMATOCRIT 27.1 % (36-48); IMMATURE GRANULOCYTE ABSOLUTE 0.01 K/uL (0-1); LYMPHOCYTES # (AUTO) 3.8 K/uL (1.0-4.8); LYMPHOCYTES % (AUTO) 55.3 % (21.0-51.0); MEAN CORPUSCULAR HEMOGLOBIN 30.1 pg (27.0-33.0); MEAN CORPUSCULAR HGB CONC 33.6 g/dL (32.0-36.0); MEAN CORPUSCULAR VOLUME 89.7 fL (79-99); MONOCYTES # (AUTO) 1.3 K/uL (0.1-1.0); MONOCYTES % (AUTO) 19.2 % (3.0-13.0); NEUTROPHILS # (AUTO) 1.2 K/uL (1.8-7.7); NEUTROPHILS % (AUTO) 17.6 % (40.0-77.0); PLATELET COUNT (AUTO) 220 K/uL (130-400); RED BLOOD CELL COUNT(AUTO) 3.02 MIL/uL (4.00-5.50); RED CELL DISTRIBUTION WIDTH 20.5 % (11.0-15.5); WHITE BLOOD COUNT (AUTO) 6.9 K/uL (4.8-10.8)
[2023-09-04 05:10] LABS: BILIRUBIN,TOTAL 1.1 mg/dL (0.2-1.0); CREATININE 1.7 mg/dL (0.5-1.5); POTASSIUM 4.3 mmol/L (3.5-5.1); TOTAL PROTEIN, SERUM 6.5 g/dL (6.0-8.3)
[2023-09-04] MEDS: CEFTRIAXONE 1G VIAL IVPB SCH (05:49)
[2023-09-04] MEDS: SPIRONOLACTONE 100 MG PO SCH ×2 (09:00→20:54)
[2023-09-04] MEDS: PANTOPRAZOLE 40 MG TAB DR PO SCH (09:08)
[2023-09-04] MEDS: ASCORBIC ACID 500 MG TAB PO SCH (09:08)
[2023-09-04] MEDS: CELECOXIB 200 MG CAP PO SCH ×2 (09:09→20:54)
[2023-09-04] MEDS: LACTULOSE 20 GM/30 ML UDCUP PO SCH ×3 (09:09→20:54)
[2023-09-04] MEDS: FUROSEMIDE 40 MG TABLET PO SCH (09:09)
[2023-09-04] MEDS: DEXTROSE 5 %-0.45 % NACL 1,000 ML IV SCH (19:00)
[2023-09-05 00:12] VITALS: BP 153/69; PULSE 59; RESP 18
[2023-09-05 04:44] VITALS: BP 144/61; PULSE 64; RESP 20
[2023-09-05] MEDS: CEFTRIAXONE 1G VIAL IVPB SCH (05:31)
[2023-09-05] MEDS ORDERED: NITR-103 PO (07:03)
[2023-09-05 08:00] VITALS: O2SAT 93
[2023-09-05] MEDS: FUROSEMIDE 40 MG TABLET PO SCH (08:40)
[2023-09-05] MEDS: SPIRONOLACTONE 100 MG PO SCH (08:40)
[2023-09-05] MEDS: LACTULOSE 20 GM/30 ML UDCUP PO SCH (08:40)
[2023-09-05] MEDS: CELECOXIB 200 MG CAP PO SCH (08:40)
[2023-09-05] MEDS: PANTOPRAZOLE 40 MG TAB DR PO SCH (08:40)
[2023-09-05] MEDS: ASCORBIC ACID 500 MG TAB PO SCH (08:40)
== END 2023-09-05 09:00 | disposition home or self-care (01) | DRG 442 ==
LOC: EDH 15:33 → EDHIP 18:46 → OBSVTOIN 18:46 → INTOOBSV 18:46 → 3AH 21:31
PROVIDERS: ADMIT Internal Medicine; ATTEND Internal Medicine
DX: K76.82 Hepatic encephalopathy (principal); N39.0 Urinary tract infection, site not specified; Z68.41 Body mass index [BMI] 40.0-44.9, adult; K74.60 Unspecified cirrhosis of liver; E66.01 Morbid (severe) obesity due to excess calories; Z20.822 Contact with and (suspected) exposure to COVID-19; Z90.81 Acquired absence of spleen
CPT/HCPCS: 36415; 80053; 80305; 81001; 82140; 82550; 82948; 83605; 83690; 84484; 85025; 87077; 87088; 87186; 87426; 87804; 87880; 93005; G0378; J0696; J7042

== ENCOUNTER 2023-09-27 12:46 | Emergency (ER) | payer MEDICARE ==
[~2023-09-27 12:46] MED LIST changes: +ASCO100031 PO; +CELE-125 PO; +ERGO500093 PO; +LACT10SO5 PO; -LACT10SO95 PO; +NITR-103 PO; -VITAMIN D12
== END 2023-09-27 13:45 | disposition left against medical advice (07) ==
LOC: EDH 12:46
DX: R68.89 Other general symptoms and signs (principal); Z53.21 Procedure and treatment not carried out due to patient leaving prior to being seen by health care provider